=== PATIENT | female | born 1970 | race Caucasian/White ===

== ENCOUNTER 2019-04-22 11:32 | Inpatient (IN) | payer OTHER ==
--- NOTE | 2019-04-22 14:42 | HP ---
CIWA Score Nausea/Vomitin-No Nausea/No Vomiting Muscle Tremors: 1-None Visible, but [place] Anxiety: 4-Mod. Anxious/Guarded Agitation: 3 Paroxysmal Sweats: 1-Minimal Palms Moist Orientation: 0-Oriented Tacttile Disturbances: 2-Mild Itch/Numbness/Burn (itching sensation in arms and stomach) Auditory Disturbances: 0-None Visual Disturbances: 0-None Headache: 2-Mild (posterior POWELL(3/10 severity)) CIWA-Ar Total Score: 13 - Admission Criteria OASAS Guidelines: Admission for Medically Managed Detox: Requires at least one of the followin. CIWA greater than 12 2. Seizures within the past 24 hours 3. Delirium tremens within the past 24 hours 4. Hallucinations within the past 24 hours 5. Acute intervention needed for co occurring medical disorder 6. Acute intervention needed for co occurring psychiatric disorder 7. Severe withdrawal that cannot be handled at a lower level of care (continued vomiting, continued diarrhea, abnormal vital signs) requiring intravenous medication and/or fluids 8. Admission ROS [facility] Chief Complaint: detox from xanax Allergies/Adverse Reactions: Allergies Allergy/AdvReac Type Severity Reaction Status Date / Time meloxicam [From Mobic] Allergy Intermediate Verified 04/22/19 13:17 ibuprofen [From Motrin] Allergy Mild Rash Verified 04/22/19 13:16 History of Present Illness: 49F w/ HTN, asthma, migraines, herniated discs(c-spine, l-spine), carpal tunnel bl, RA of hands bl, asthma, PTSD, anxiety. Heroin(IV, nasal) 5bags daily, last usage yesterday. Uses clean needles, does not share. No ODs. No Narcan kit. Xanax 2-3pills(2mg) a few times a week for the past 3ys. Last xanax usage at ~ 0500. Formerly, had a rx d/t anxiety. Has had black-outs. Gets tremors after not using xanax for 3d. Has seizures x2(2014, 2015). On MMTP(90mg), last dose was this morning. Smokes 12cig daily. Was substance free for 1yr in 2017. Lives in [facility], [place], operated by [facility] with Terri. Financial support through [employer]. - Ebola screening Have you traveled outside of the country in the last 21 days: No Have you had contact with anyone from an Ebola affected area: No Do you have a fever: No - Review of Systems EENT: denies: Blurred Vision, Double Vision, Difficulty Swallowing Respiratory: denies: Cough, Productive cough Cardiac: denies: Chest Pain, Lightheadedness, Palpitations GI: reports: Constipated. denies: Abdominal Distended, Diarrhea, Poor Appetite , Vomiting, Indigestion : denies: Burning, Dysuria Musculoskeletal: reports: Back Pain Neuro: reports: Weakness (Left hand: difficulty lifting/grasping items). denies : Headache, Ataxia Hematology: denies: Blood Clots Patient History - Patient Medical History Hx Anemia: No Hx Asthma: Yes Hx Cancer: No Hx Cardiac Disorders: No Hx Hypertension: Yes HX Cerebrovascular Accident: No Hx Seizures: Yes (2014, 2015) Hx Diabetes: Yes (prediabetic) Hx Liver Disease: No Hx Renal Disease (ESRD): No Hx Human Immunodeficiency Virus (HIV): No Hx Hepatitis C: No - Patient Surgical History Past Surgical History: Yes Hx Cholecystectomy: Yes (tanya swann 1999) - Reproductive History Patient is a Female of Child Bearing Age (11 -55 yrs old): Yes Last Menstrual Period: 03/06/19 - Smoking Cessation Smoking history: Current every day smoker Have you smoked in the past 12 months: Yes Aproximately how many cigarettes per day: 12 Initiated information on smoking cessation: No - Substance & Tx. History Hx Alcohol Use: No Hx Substance Use: Yes Substance Use Type: Heroin, Tranquilizers - Substances abused Alprazolam (Xanax) Substance route: Oral Frequency: 3-6 times per week Amount used: 2-3 sticks Age of first use: 38 Date of last use: 04/21/19 Heroin Substance route: Smoking Frequency: Daily Amount used: 5 BAGS Age of first use: 7 Date of last use: 04/21/19 Admission Physical Exam BHS - Vital Signs Vital Signs: Vital Signs - 24 hr 04/22/19 04/22/19 13:20 13:51 Temperature 97 F L 97 F L Pulse Rate 70 70 Respiratory 18 Rate Blood Pressure 172/68 H - Physical General Appearance: Yes: Within Normal Limits, No Apparent Distress. No: Intoxicated HEENTM: Yes: Normocephalic. No: Pale Conjunctivae R, Pale Conjunctivae L, Scleral Ictenus R, Scleral Ictenus L Respiratory: Yes: Chest Non-Tender, No Accessory Muscle Use. No: Respiratory Distress, Wheezing Neck: Yes: No masses,lesions,Nodules, Trachea in good position Cardiology: Yes: S1, S2. No: Bradycardia, Tachycardia Abdominal: Yes: Soft. 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
--- NOTE | 2019-04-22 15:00 | PN ---
"Teaching Attending Note Name of Resident: Eleazar Wright ATTENDING PHYSICIAN STATEMENT I saw and evaluated the patient. I reviewed the resident's note and discussed the case with the resident. I agree with the resident's findings and plan as documented. SUBJECTIVE: 49 y.o,. female requesting detox from benzodiazepine use , reports 2 mg every other day x 3 years , reports tremors and anxiety if not using , current symptoms as above , latest use this morning , on MMTP 90 mg , ongoing heroin use 5 bags daily via inhalation , latest use yesterday , denies OD , no Narcan @ home . tobacco : 12 cigs/ day PMHX : HTN, asthma, migraines, herniated discs(c-spine, l-spine), carpal tunnel bl, RA of hands bl, asthma, PTSD, anxiety. OBJECTIVE: wnwd , anxious , agitated. Search Terms: fili cazares, 1970 Search Date: 04/22/2019 02:58:04 PM This report was requested by: Chayo Lr | Reference #: [id number] There are no results for the search terms that you entered. Vital Signs - 24 hr 04/22/19 04/22/19 13:20 13:51 Temperature 97 F L 97 F L Pulse Rate 70 70 Respiratory 18 Rate Blood Pressure 172/68 H ASSESSMENT AND PLAN: sedative use / abuse - Valium taper."
[2019-04-22 15:01] VITALS: BMI 31.4
[2019-04-22] MEDS ORDERED: ACETAMINOPHEN 325 MG TABLET (FP) PO PRN ×2 (15:10)
[2019-04-22] MEDS ORDERED: MAG HYDROX/AL HYDROX/SIMETH 30 ML UNIT-DOSE CUP PO PRN (15:10)
[2019-04-22] MEDS ORDERED: diazePAM 5 MG TABLET PO PRN (15:10)
[2019-04-22] MEDS ORDERED: NICOTINE POLACRILEX 2 MG GUM BUC PRN (15:10)
[2019-04-22] MEDS ORDERED: MENTHOL/PHENOL 1 EACH UD MM PRN (15:10)
[2019-04-22] MEDS ORDERED: MAGNESIUM CITRATE 300 ML BOTTLE PO PRN (15:10)
[2019-04-22] MEDS ORDERED: hydrOXYzine PAMOATE 25 MG CAPSULE (FP) PO PRN (15:10)
[2019-04-22] MEDS ORDERED: BISMUTH SUBSALICYLATE 524 MG/30 ML UD PO PRN (15:10)
[2019-04-22] MEDS ORDERED: METHOCARBAMOL 500 MG TABLET PO PRN (15:10)
[2019-04-22] MEDS: diazePAM 5 MG TABLET PO SCH ×2 (16:31→22:26)
[2019-04-22] MEDS: MOMETASONE FUROATE 220 MCG/IH INHALER IH SCH (18:25)
[2019-04-22] MEDS: THIAMINE HCL 100 MG TABLET (FP) PO SCH (22:26)
[2019-04-22] MEDS: GABAPENTIN 300 MG CAPSULE (FP) PO SCH (22:26)
[2019-04-22] MEDS: MELATONIN 5 MG TABLETS PO PRN (22:26)
[2019-04-23] MEDS ORDERED: METHADONE HCL 40 MG DISPERSABLE TABLET ONE (04:39)
[2019-04-23] MEDS ORDERED: METHADONE HCL 10 MG TABLET ONE (04:39)
[2019-04-23] MEDS: METHADONE 80 MG, METHADONE 10 MG PO SCH (05:33)
[2019-04-23] MEDS: diazePAM 5 MG TABLET PO SCH ×3 (05:33→22:39)
[2019-04-23] MEDS: GABAPENTIN 300 MG CAPSULE (FP) PO SCH ×3 (05:33→22:39)
[2019-04-23] MEDS ORDERED: METHADONE HCL 10 MG TABLET (FOR DETOX USE ONLY) PO SCH (10:00)
[2019-04-23] MEDS: PRENATAL VITAMINS W/ FOLIC ACID TABLET (FP) PO SCH (10:11)
[2019-04-23 11:15] LABS: HEMATOCRIT 38.2 % (32.4-45.2); HEMOGLOBIN 13.1 GM/dL (10.7-15.3); MCHC 34.2 g/dl (32.0-36.0); MEAN CELL VOLUME 96.4 fl (80-96); MEAN PLT VOLUME 8.1 fl (7.5-11.1); PLATELET COUNT 286 K/MM3 (134-434); RBC 3.96 M/mm3 (3.60-5.2); RDW 14.2 % (11.6-15.6); WHITE BLOOD COUNT 6.9 K/mm3 (4.0-10.0)
[2019-04-23 11:22] LABS: ALBUMIN 3.6 g/dl (3.4-5.0); BILIRUBIN,TOTAL 0.2 mg/dL (0.2-1); BLOOD UREA NITROGEN 11.8 mg/dL (7-18); CREATININE 0.7 mg/dL (0.55-1.3); POTASSIUM 4.1 mmol/L (3.5-5.1); TOT PROT 6.6 g/dl (6.4-8.2)
--- NOTE | 2019-04-23 12:16 | PN ---
S CIWA - CIWA Score Nausea/Vomitin-No Nausea/No Vomiting Muscle Tremors: 2 Anxiety: 3 Agitation: 1-Slight > Activity Paroxysmal Sweats: 3 Orientation: 0-Oriented Tacttile Disturbances: 0-None Auditory Disturbances: 0-None Visual Disturbances: 0-None Headache: 2-Mild CIWA-Ar Total Score: 11 S Progress Note (SOAP) Subjective: c/o anxiety, sweats, headache, and mild shakes. Objective: 04/23/19 12:16 Vital Signs 04/23/19 04/23/19 06:00 09:46 Temperature 97.9 F 98.8 F Pulse Rate 55 L 53 L Respiratory 18 18 Rate Blood Pressure 127/74 99/54 L Lab Results WBC 6.9 K/mm3 (4.0-10.0) 04/23/19 08:00 RBC 3.96 M/mm3 (3.60-5.2) 04/23/19 08:00 Hgb 13.1 GM/dL (10.7-15.3) 04/23/19 08:00 Hct 38.2 % (32.4-45.2) 04/23/19 08:00 MCV 96.4 fl (80-96) H 04/23/19 08:00 MCHC 34.2 g/dl (32.0-36.0) 04/23/19 08:00 RDW 14.2 % (11.6-15.6) 04/23/19 08:00 Plt Count 286 K/MM3 (134-434) D 04/23/19 08:00 Sodium 139 mmol/L (136-145) 04/23/19 08:00 Potassium 4.1 mmol/L (3.5-5.1) 04/23/19 08:00 Chloride 105 mmol/L (98-107) 04/23/19 08:00 Carbon Dioxide 29 mmol/L (21-32) 04/23/19 08:00 Anion Gap 5 MMOL/L (8-16) L 04/23/19 08:00 BUN 11.8 mg/dL (7-18) 04/23/19 08:00 Creatinine 0.7 mg/dL (0.55-1.3) 04/23/19 08:00 Random Glucose 84 mg/dL (74-106) 04/23/19 08:00 Calcium 9.0 mg/dL (8.5-10.1) 04/23/19 08:00 Labs noted. Assessment: 04/23/19 12:17 AOX3, in no acute distress. Full ROM, ambulating in the unit. Withdrawal symptoms. Plan: continue detox.
[2019-04-23] MEDS: MOMETASONE FUROATE 220 MCG/IH INHALER IH SCH (17:59)
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
[2019-04-23] MEDS: QUEtiapine FUMARATE 100 MG TABLET (FP) PO SCH (22:39)
[2019-04-23] MEDS: THIAMINE HCL 100 MG TABLET (FP) PO SCH (22:39)
[2019-04-24] MEDS ORDERED: METHADONE HCL 10 MG TABLET ONE (04:36)
[2019-04-24] MEDS ORDERED: METHADONE HCL 40 MG DISPERSABLE TABLET ONE (04:37)
[2019-04-24] MEDS: GABAPENTIN 300 MG CAPSULE (FP) PO SCH ×3 (05:21→22:07)
[2019-04-24] MEDS: METHADONE 80 MG, METHADONE 10 MG PO SCH (05:21)
[2019-04-24] MEDS: diazePAM 5 MG TABLET PO SCH ×2 (05:21→17:52)
[2019-04-24] MEDS: PRENATAL VITAMINS W/ FOLIC ACID TABLET (FP) PO SCH (10:40)
[2019-04-24] MEDS: MAGNESIUM HYDROX 2400MG/30ML ORAL SUSPENSION 30 ML CUP PO PRN (17:20)
[2019-04-24] MEDS ORDERED: cloNIDine HCL 0.1 MG TABLET PO PRN (17:43)
[2019-04-24] MEDS ORDERED: ONDANSETRON *ODT* 4 MG TABLET SL PRN (17:48)
--- NOTE | 2019-04-24 17:48 | PN ---
S CIWA - CIWA Score Nausea/Vomitin Muscle Tremors: 3 Anxiety: 3 Agitation: 2 Paroxysmal Sweats: 3 Orientation: 0-Oriented Tacttile Disturbances: 0-None Auditory Disturbances: 0-None Visual Disturbances: 0-None Headache: 0-None Present CIWA-Ar Total Score: 16 BHS Progress Note (SOAP) Subjective: Vomited x 2 this morning, stomachache, chills, sweating, tremor, nausea Objective: 04/24/19 17:43 Last Vital Signs Temp Pulse Resp BP Pulse Ox 98.6 F 67 18 158/74 04/24/19 17:12 04/24/19 17:12 04/24/19 17:12 04/24/19 17:12 Elevated b/p noted, Has htn (not on medication, started on clonidine prn) Laboratory Tests 04/23/19 04/23/19 04/23/19 08:00 08:00 08:00 WBC 6.9 RBC 3.96 Hgb 13.1 Hct 38.2 MCV 96.4 H MCH 33.0 MCHC 34.2 RDW 14.2 Plt Count 286 D MPV 8.1 Sodium 139 Potassium 4.1 Chloride 105 Carbon Dioxide 29 Anion Gap 5 L BUN 11.8 Creatinine 0.7 Est GFR (CKD-EPI)AfAm 116.27 Est GFR (CKD-EPI)NonAf 100.32 Random Glucose 84 Calcium 9.0 Total Bilirubin 0.2 AST 21 ALT 32 Alkaline Phosphatase 72 Total Protein 6.6 Albumin 3.6 RPR Titer Nonreactive Labs reviewed Assessment: 04/24/19 17:46 Withdrawal sxs Plan: Continue detox Encouraged PO water intake Diazepam protocol extended (5mg bid tomorrow then 5mg on Thursday due to increased withdrawal sxs) Tigan 200mg IM q12 hr prn vomiting Zofran 4mg SL q8hr prn n/v Repeat BMP in AM
[2019-04-24] MEDS ORDERED: TRIMETHOBENZAMIDE HCL 200MG/2ML INJ IM PRN (17:49)
[2019-04-24] MEDS: MOMETASONE FUROATE 220 MCG/IH INHALER IH SCH (17:56)
[2019-04-24] MEDS: QUEtiapine FUMARATE 100 MG TABLET (FP) PO SCH (22:07)
[2019-04-24] MEDS: THIAMINE HCL 100 MG TABLET (FP) PO SCH (22:07)
[2019-04-25] MEDS ORDERED: METHADONE HCL 40 MG DISPERSABLE TABLET ONE (05:11)
[2019-04-25] MEDS ORDERED: METHADONE HCL 10 MG TABLET ONE (05:11)
[2019-04-25] MEDS ORDERED: diazePAM 5 MG TABLET PO ONE ×2 (06:00→10:00)
[2019-04-25] MEDS: METHADONE 80 MG, METHADONE 10 MG PO SCH (06:51)
[2019-04-25] MEDS: GABAPENTIN 300 MG CAPSULE (FP) PO SCH ×3 (06:51→22:02)
[2019-04-25] MEDS: diazePAM 5 MG TABLET PO SCH ×2 (11:05→22:02)
[2019-04-25] MEDS: PRENATAL VITAMINS W/ FOLIC ACID TABLET (FP) PO SCH (11:05)
[2019-04-25] MEDS: MAGNESIUM HYDROX 2400MG/30ML ORAL SUSPENSION 30 ML CUP PO PRN (11:16)
--- NOTE | 2019-04-25 12:07 | PN ---
S CIWA - CIWA Score Nausea/Vomitin-No Nausea/No Vomiting Muscle Tremors: 1-None Visible, but [place] Anxiety: 2 Agitation: 1-Slight > Activity Paroxysmal Sweats: No Perspiration Orientation: 0-Oriented Tacttile Disturbances: 0-None Auditory Disturbances: 0-None Visual Disturbances: 0-None Headache: 0-None Present CIWA-Ar Total Score: 4 BHS Progress Note (SOAP) Subjective: constipation Objective: 04/25/19 12:06 Vital Signs Temperature 99.7 F H 04/25/19 11:05 Pulse Rate 75 04/25/19 11:05 Respiratory Rate 04/25/19 11:05 Blood Pressure 136/77 04/25/19 11:05 O2 Sat by Pulse Oximetry (%) aaox3 ambulating no acute distress Assessment: 04/25/19 12:06 mild withdrawals Plan: continue detox increase fluids MOM/Mylanta/citroma d/c in am
[2019-04-25] MEDS: MOMETASONE FUROATE 220 MCG/IH INHALER IH SCH (17:38)
[2019-04-25] MEDS: THIAMINE HCL 100 MG TABLET (FP) PO SCH (22:02)
[2019-04-25] MEDS: MELATONIN 5 MG TABLETS PO PRN (22:02)
[2019-04-25] MEDS: QUEtiapine FUMARATE 100 MG TABLET (FP) PO SCH (22:02)
[2019-04-26] MEDS ORDERED: METHADONE HCL 10 MG TABLET ONE (05:14)
[2019-04-26] MEDS ORDERED: METHADONE HCL 40 MG DISPERSABLE TABLET ONE (05:15)
[2019-04-26] MEDS ORDERED: diazePAM 5 MG TABLET PO ONE (06:00)
[2019-04-26] MEDS: METHADONE 80 MG, METHADONE 10 MG PO SCH (06:06)
[2019-04-26] MEDS: GABAPENTIN 300 MG CAPSULE (FP) PO SCH (06:07)
[2019-04-26 09:11] VITALS: BP 116/71; PULSE 76; TEMP 98.4
--- NOTE | 2019-04-26 09:27 | DS ---
[facility] Detox Discharge Summary Admission Date: 04/22/19 Discharge Date: 04/26/19 - History Present History: Sedative Dependence - Physical Exam Results Vital Signs: Vital Signs Temperature 98.4 F 04/26/19 09:11 Pulse Rate 76 04/26/19 09:11 Respiratory Rate 18 04/26/19 09:11 Blood Pressure 116/71 04/26/19 09:11 O2 Sat by Pulse Oximetry (%) Pertinent Admission Physical Exam Findings: pt arrived in withdrawals Laboratory Tests 04/22/19 04/23/19 04/23/19 13:54 08:00 08:00 WBC 6.9 RBC 3.96 Hgb 13.1 Hct 38.2 MCV 96.4 H MCH 33.0 MCHC 34.2 RDW 14.2 Plt Count 286 D MPV 8.1 Sodium 139 Potassium 4.1 Chloride 105 Carbon Dioxide 29 Anion Gap 5 L BUN 11.8 Creatinine 0.7 Est GFR (CKD-EPI)AfAm 116.27 Est GFR (CKD-EPI)NonAf 100.32 Random Glucose 84 Calcium 9.0 Total Bilirubin 0.2 AST 21 ALT 32 Alkaline Phosphatase 72 Total Protein 6.6 Albumin 3.6 POC Urine HCG, Qual Negative RPR Titer 04/23/19 08:00 WBC RBC Hgb Hct MCV MCH MCHC RDW Plt Count MPV Sodium Potassium Chloride Carbon Dioxide Anion Gap BUN Creatinine Est GFR (CKD-EPI)AfAm Est GFR (CKD-EPI)NonAf Random Glucose Calcium Total Bilirubin AST ALT Alkaline Phosphatase Total Protein Albumin POC Urine HCG, Qual RPR Titer Nonreactive today pt is aaox3 ambulating no acute distress - Treatment Hospital Course: Detox Protocol Followed, Detoxed Safely, Responded well, Discharged Condition Good, Rehab Referral Accepted Patient has Accepted a Rehab Referral to: pt referred to [facility] - Medication Discharge Medications: Ambulatory Orders Flovent Diskus 04/22/19 Gabapentin 04/22/19 - Diagnosis (1) Benzodiazepine dependence Current Visit: Yes Status: Chronic (2) Heroin dependence Current Visit: Yes Status: Chronic (3) History of posttraumatic stress disorder (PTSD) Current Visit: Yes Status: Chronic (4) Insomnia Current Visit: Yes Status: Chronic (5) Nicotine dependence Current Visit: Yes Status: Chronic Qualifiers: Nicotine product type: cigarettes Substance use status: uncomplicated Qualified Code(s): F17.210 - Nicotine dependence, cigarettes, uncomplicated (6) Substance induced mood disorder Current Visit: Yes Status: Chronic - AMA Did Patient Leave Against Medical Advice: No
== END 2019-04-26 09:25 | disposition home or self-care (01) | DRG 773 ==
LOC: YASAS 11:32 → Y6N 15:46
PROVIDERS: ADMIT Surgery; ATTEND Surgery
PROC: HZ2ZZZZ Detoxification Services for Substance Abuse Treatment (ICD-10-PCS; principal; 2019-04-22)
DX: F11.23 Opioid dependence with withdrawal (principal); F13.230 Sedative, hypnotic or anxiolytic dependence with withdrawal, uncomplicated; F17.210 Nicotine dependence, cigarettes, uncomplicated; F19.24 Other psychoactive substance dependence with psychoactive substance-induced mood disorder; G47.00 Insomnia, unspecified; J45.909 Unspecified asthma, uncomplicated; R73.03 Prediabetes; M06.842 Other specified rheumatoid arthritis, left hand; M06.841 Other specified rheumatoid arthritis, right hand; G89.29 Other chronic pain; Z86.59 Personal history of other mental and behavioral disorders; Z88.8 Allergy status to other drugs, medicaments and biological substances; Z86.69 Personal history of other diseases of the nervous system and sense organs
CPT/HCPCS: 36415; 80053; 81025; 85027; 86593

== ENCOUNTER 2019-05-20 14:30 | Inpatient (IN) | payer OTHER ==
[2019-05-20 16:33] VITALS: BMI 30.7
--- NOTE | 2019-05-20 18:00 | HP ---
"CIWA Score Nausea/Vomitin-No Nausea/No Vomiting Muscle Tremors: None Anxiety: 1-Mildly Anxious Agitation: 1-Slight > Activity Paroxysmal Sweats: No Perspiration Orientation: 0-Oriented Tacttile Disturbances: 0-None Auditory Disturbances: 0-None Visual Disturbances: 0-None Headache: 0-None Present CIWA-Ar Total Score: 2 - Admission Criteria OASAS Guidelines: Admission for Medically Managed Detox: Requires at least one of the followin. CIWA greater than 12 2. Seizures within the past 24 hours 3. Delirium tremens within the past 24 hours 4. Hallucinations within the past 24 hours 5. Acute intervention needed for co occurring medical disorder 6. Acute intervention needed for co occurring psychiatric disorder 7. Severe withdrawal that cannot be handled at a lower level of care (continued vomiting, continued diarrhea, abnormal vital signs) requiring intravenous medication and/or fluids 8. Patient presents the following: Acute intervention needed for co-occurring med or psych disorder (Currently w/ Xanax in system. Hx seizures in past r/t withdrawal. MARYAM: 0.040 Co-occurrring psych disorder) Admission Criteria Met: Admission criteria met Admitting History and Physical - Past Medical History ...LMP: 03/06/19 - Smoking History Smoking history: Current every day smoker Have you smoked in the past 12 months: Yes Aproximately how many cigarettes per day: 12 - Alcohol/Substance Use Hx Alcohol Use: No Admission ROS S - HPI Chief Complaint: here for detox from Xanax. Allergies/Adverse Reactions: Allergies Allergy/AdvReac Type Severity Reaction Status Date / Time meloxicam [From Mobic] Allergy Intermediate Verified 05/20/19 16:25 ibuprofen [From Motrin] Allergy Mild Rash Verified 05/20/19 16:25 History of Present Illness: 49 yo presents seeking detox from Xanax. Patient states took Xanax today and is not in withdrawal and is afraid to stop for fear of seizures. Hx depression and on MH meds. UTox: + MTD/BZO MARYAM: 0.040 HCG: Neg Hx: Seizures 2 years ago r/t medication withdrawals. Hx: Overdose 2 years ago. Xanax use since age 21. States currently using 3 - sticks/every other day. ( total 6 mg) Alcohol use since age 19. Currently drinks 1 shot liquor about 2 x/month Nicotine use since age 9. Smokes 10cig/day. Heroin use since age 7. Currently @ [facility] x 3 years. Currently on Methadone 100 mg PO daily. Last medicated today. [facility] has a Narcan Kit @ home. Longest sobriety 1yr in 2017. PMHx: HTN, Asthma (last exacerbation 1 yr ago), Migraines, RA, Chronic Back pain r/t Herniated discs(cervical/lumbar), Hand pain (states has carpal tunnel) , MHHx: PTSD, Anxiety. Depression. Sees a MH Provider @ [facility]. On MH meds. Denies thoughts of harming self or others SHx: Domiciled. Unemployed. ([employer]) Search Terms: Tracey Leon, 1970 Search Date: 05/20/2019 05:54:24 PM The Drug Utilization Report below displays all of the controlled substance prescriptions, if any, that your patient has filled in the last twelve months. The information displayed on this report is compiled from pharmacy submissions to the Department, and accurately reflects the information as submitted by the pharmacies. This report was requested by: Skylar Bryant | Reference #: [id number] There are no results for the search terms that you entered. Search Terms: Tracey Quintero, 1970 Search Date: 05/20/2019 05:57:05 PM States Searched: [place], [place], [place], [place], [place], [place], [place], [place] The Drug Utilization Report below displays the controlled substance prescriptions, if any, that were dispensed in the indicated state(s). The information displayed on this report is compiled from requests submitted to other states' PMPs, and accurately reflects the information as returned by them. Blank roman indicate data not provided by other state. This report was requested by: Skylar Bryant | Reference #: [id number] There are no results for the search terms that you entered. Exam Limitations: No Limitations - Ebola screening Have you traveled outside of the country in the last 21 days: No Have you had contact with anyone from an Ebola affected area: No Have you been sick,other than usual withdrawal symptoms: No Do you have a fever: No - Review of Systems Constitutional: Changes in sleep (Difficulty falling and staying asleep) EENT: reports: Blurred Vision Respiratory: reports: No Symptoms reported Cardiac: reports: No Symptoms Reported GI: reports: Indigestion (Acid reflux - takes TUMS) : reports: No Symptoms Reported Musculoskeletal: reports: Back Pain (Chronic Back pain r/t Herniated discs( cervical/lumbar),), Joint Pain ( Bilateral hand pain (states has carpal tunnel)) Integumentary: reports: No Symptoms Reported Neuro: reports: No Symptoms reported Endocrine: reports: No Symptoms Reported Hematology: reports: No Symptoms Reported Psychiatric: reports: Mood/Affect Appropiate, Orientated x3, Anxious, Depressed (Denies thoughts of harming self or others.) Patient History - Patient Medical History Hx Anemia: No Hx Asthma: Yes Hx Chronic Obstructive Pulmonary Disease (COPD): No Hx Cancer: No Hx Cardiac Disorders: No Hx Hypertension: No HX Cerebrovascular Accident: No Hx Seizures: Yes (last seizure was 3 yrs ago.) Hx Diabetes: No Hx Gastrointestinal Disorders: No Hx Liver Disease: No Hx Genitourinary Disorders: No Hx Sexually Transmitted Disorders: No Hx Renal Disease (ESRD): No Hx Human Immunodeficiency Virus (HIV): No Hx Hepatitis C: No Hx Depression: Yes Hx Suicide Attempt: Yes (Pt tried to cut herself as a teen) Hx Schizophrenia: No - Patient Surgical History Past Surgical History: Yes Hx Cholecystectomy: Yes (tanya swann 1999) Hx Section: Yes () Hx Orthopedic Surgery: Yes (sx for carpal tunnel R hand) - PPD History Previous Implant?: Yes Documented Results: Negative w/proof Implanted On Prior [facility] Admission?: Yes Date: 04/24/19 PPD to be Administered?: No - Reproductive History Patient is a Female of Child Bearing Age (11 -55 yrs old): Yes Last Menstrual Period: 05/03/19 Patient : No - Smoking Cessation Smoking history: Current every day smoker Have you smoked in the past 12 months: Yes Aproximately how many cigarettes per day: 10 Hx Chewing Tobacco Use: No Initiated information on smoking cessation: Yes 'Breaking Loose' booklet given: 05/20/19 - Substance & Tx. History Hx Alcohol Use: No Hx Substance Use: Yes Substance Use Type: Heroin, Opiates, Tranquilizers (Xanax) - Substances abused Alprazolam (Xanax) Substance route: Oral Frequency: 3-6 times per week Amount used: 2-3 sticks Age of first use: 38 Date of last use: 05/20/19 Heroin Substance route: Inhalation Frequency: Daily Amount used: 1 to 2 bags Age of first use: 7 Date of last use: 05/13/19 Alcohol Substance route: Oral Frequency: 1-3 times last 30 days Amount used: tiny shot' of liquor Age of first use: 19 Date of last use: 05/20/19 Admission Physical Exam S - Vital Signs Vital Signs: Vital Signs - 24 hr 05/20/19 16:24 Temperature 99.2 F Pulse Rate 90 Respiratory 16 Rate Blood Pressure 99/60 - Physical General Appearance: Yes: Nourished, Alcohol on Breath (MARYAM: 0.40) HEENTM: Yes: EOMI (Jerking movement of eyes upon lateral gaze), Hearing grossly Normal, Normocephalic, Normal Voice, DOLORES, Pharynx Normal Respiratory: Yes: Lungs Clear (Pulse Ox = 97 %), Normal Breath Sounds, No Respiratory Distress Neck: Yes: No masses,lesions,Nodules, Supple Breast: Yes: Breast Exam Deferred Cardiology: Yes: Regular Rhythm, Regular Rate (HR: 60), S1, S2 Abdominal: Yes: Non Tender, Soft, Increased Bowel Sounds, Protuberent ( Increased abdominal adiposity) Genitourinary: Yes: Within Normal Limits Back: Yes: Normal Inspection Musculoskeletal: Yes: full range of Motion, Gait Steady Extremities: Yes: Normal Capillary Refill (peripheral pulses +) Neurological: 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: 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 NML intact (Jerking movement of eyes upon lateral gaze), Fully Oriented, Alert, Motor Strength 5/5 Integumentary: Yes: Normal Color, Dry, Warm Lymphatic: Yes: Within Normal Limits - Diagnostic (1) Unspecified nystagmus Current Visit: Yes Status: Acute (2) Methadone maintenance therapy patient Current Visit: Yes Status: Chronic (3) Sedative, hypnotic, 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 Current Visit: Yes Status: Acute (4) History of seizures Current Visit: Yes Status: Suspected (5) Nicotine dependence Current Visit: Yes Status: Chronic Qualifiers: Nicotine product type: cigarettes Substance use status: uncomplicated Qualified Code(s): F17.210 - Nicotine dependence, cigarettes, uncomplicated (6) History of arthritis Current Visit: Yes Status: Chronic (7) History of asthma Current Visit: No Status: Chronic (8) HTN (hypertension) Current Visit: Yes Status: Chronic Qualifiers: Hypertension type: essential hypertension Qualified Code(s): I10 - Essential (primary) hypertension Cleared for Admission [facility] - Detox or Rehab [facility] Level of Care: Medically Managed Detox Regimen/Protocol: Valium Claeared for Rehab Admission: No Breathalyzer - Breathalyzer Breathalyzer: 0.040 Urine Drug Screen - Test Device Lot number: [id number] Expiration date: 12/31/20 - Control Is test valid?: Yes - Results Drug screen NEGATIVE: Yes Urine drug screen results: MTD-Methadone, BZO-Benzodiazepines Inpatient Rehab Admission - Rehab Decision to Admit Inpatient rehab admission?: No"
[2019-05-20] MEDS ORDERED: IBUPROFEN 400 MG TABLET (FP) PO PRN ×2 (19:08→19:18)
[2019-05-20] MEDS ORDERED: BISMUTH SUBSALICYLATE 524 MG/30 ML UD PO PRN (19:08)
[2019-05-20] MEDS ORDERED: ACETAMINOPHEN 325 MG TABLET (FP) PO PRN ×2 (19:08)
[2019-05-20] MEDS ORDERED: MAGNESIUM HYDROX 2400MG/30ML ORAL SUSPENSION 30 ML CUP PO PRN (19:08)
[2019-05-20] MEDS ORDERED: MENTHOL/PHENOL 1 EACH UD MM PRN (19:08)
[2019-05-20] MEDS ORDERED: MAGNESIUM CITRATE 300 ML BOTTLE PO PRN (19:08)
[2019-05-20] MEDS ORDERED: MAG HYDROX/AL HYDROX/SIMETH 30 ML UNIT-DOSE CUP PO PRN (19:08)
[2019-05-20] MEDS: diazePAM 5 MG TABLET PO PRN (20:40)
[2019-05-20] MEDS: THIAMINE HCL 100 MG TABLET (FP) PO SCH (22:21)
[2019-05-20] MEDS: MELATONIN 5 MG TABLETS PO PRN (22:22)
[2019-05-20] MEDS: diazePAM 5 MG TABLET PO SCH (22:22)
[2019-05-21] MEDS: diazePAM 5 MG TABLET PO SCH ×3 (05:24→22:47)
[2019-05-21] MEDS ORDERED: METHADONE HCL 10 MG TABLET PO SCH (09:15)
[2019-05-21] MEDS ORDERED: METHADONE HCL 10 MG TABLET ONE (09:32)
[2019-05-21] MEDS ORDERED: METHADONE HCL 40 MG DISPERSABLE TABLET ONE (09:33)
[2019-05-21] MEDS: METHADONE 80 MG, METHADONE 20 MG PO SCH (09:35)
[2019-05-21] MEDS: NICOTINE 14 MG/24 HOURS TOPICAL PATCH TD SCH (09:36)
[2019-05-21] MEDS: PRENATAL VITAMINS W/ FOLIC ACID TABLET (FP) PO SCH (09:36)
[2019-05-21] MEDS: diazePAM 5 MG TABLET PO PRN (09:38)
[2019-05-21 10:11] LABS: ALBUMIN 3.5 g/dl (3.4-5.0); BILIRUBIN,TOTAL 0.3 mg/dL (0.2-1); BLOOD UREA NITROGEN 15.4 mg/dL (7-18); CALCIUM 8.7 mg/dL (8.5-10.1); CREATININE 0.6 mg/dL (0.55-1.3); POTASSIUM 3.7 mmol/L (3.5-5.1); TOT PROT 6.4 g/dl (6.4-8.2)
[2019-05-21 10:42] LABS: HEMATOCRIT 35.8 % (32.4-45.2); HEMOGLOBIN 12.3 GM/dL (10.7-15.3); MCH 33.2 pg (25.7-33.7); MCHC 34.4 g/dl (32.0-36.0); MEAN CELL VOLUME 96.4 fl (80-96); MEAN PLT VOLUME 8.1 fl (7.5-11.1); PLATELET COUNT 240 K/MM3 (134-434); RBC 3.71 M/mm3 (3.60-5.2); RDW 14.3 % (11.6-15.6); WHITE BLOOD COUNT 6.2 K/mm3 (4.0-10.0)
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
--- NOTE | 2019-05-21 14:04 | PN ---
[facility] CIWA - CIWA Score Nausea/Vomitin-Mild Nausea/No Vomiting Muscle Tremors: 3 Anxiety: 2 Agitation: 2 Paroxysmal Sweats: 2 Orientation: 0-Oriented Tacttile Disturbances: 0-None Auditory Disturbances: 0-None Visual Disturbances: 0-None Headache: 2-Mild CIWA-Ar Total Score: 12 BHS Progress Note (SOAP) Subjective: No complaints O: Vital Signs - 24 hr 05/20/19 05/20/19 05/21/19 16:24 22:16 00:39 Temperature 99.2 F 98.9 F Pulse Rate 90 60 Respiratory 16 18 18 Rate Blood Pressure 99/60 116/70 05/21/19 05/21/19 05/21/19 03:30 06:26 09:49 Temperature 97.7 F 97.8 F Pulse Rate 49 L 58 L Respiratory 18 18 18 Rate Blood Pressure 108/63 98/60 05/21/19 13:34 Temperature 98.5 F Pulse Rate 62 Respiratory 18 Rate Blood Pressure 135/71 Laboratory Tests 05/21/19 05/21/19 05/21/19 08:00 08:00 08:00 WBC 6.2 RBC 3.71 Hgb 12.3 Hct 35.8 MCV 96.4 H MCH 33.2 MCHC 34.4 RDW 14.3 Plt Count 240 MPV 8.1 Sodium 139 Potassium 3.7 Chloride 103 Carbon Dioxide 28 Anion Gap 8 BUN 15.4 Creatinine 0.6 Est GFR (CKD-EPI)AfAm 122.32 Est GFR (CKD-EPI)NonAf 105.54 Random Glucose 83 Calcium 8.7 Total Bilirubin 0.3 AST 31 ALT 44 Alkaline Phosphatase 67 Total Protein 6.4 Albumin 3.5 RPR Titer Nonreactive a/p Here for benzo detox- continue valium
[2019-05-21] MEDS: GABAPENTIN 100 MG CAPSULE (FP) PO SCH ×2 (14:10→22:47)
[2019-05-21 18:43] LABS: EPI CELLS 19.9 /HPF (0-5/HPF); HYALINE CASTS 9 /lpf (0-8); PH,URINE 5.5 (5.0-8.0); URINE APPEARANCE CLOUDY; URINE BACTERIA 1351.5 /hpf (NEGATIVE); URINE BILIRUBIN NEGATIVE (NEGATIVE); URINE COLOR YELLOW; URINE GLUCOSE (UA) NEGATIVE (NEGATIVE); URINE KETONE NEGATIVE (NEGATIVE); URINE LEUK ESTERASE 2+ (NEGATIVE); URINE NITRITE NEGATIVE (NEGATIVE); URINE PROTEIN NEGATIVE (NEGATIVE); URINE RBC 6 /hpf (0-4); URINE UROBILINOGEN 0.2 mg/dL (0.2-1.0); URINE WBC 53 /hpf (0-5)
[2019-05-21] MEDS: THIAMINE HCL 100 MG TABLET (FP) PO SCH (22:46)
[2019-05-21] MEDS: QUEtiapine FUMARATE 50 MG TABLET PO SCH (22:46)
[2019-05-21] MEDS: PRAZOSIN HCL 1 MG CAPSULE PO SCH (22:47)
[2019-05-22] MEDS ORDERED: METHADONE HCL 40 MG DISPERSABLE TABLET ONE (04:54)
[2019-05-22] MEDS ORDERED: METHADONE HCL 10 MG TABLET ONE (04:54)
[2019-05-22] MEDS: GABAPENTIN 100 MG CAPSULE (FP) PO SCH ×3 (05:37→22:43)
[2019-05-22] MEDS: METHADONE 80 MG, METHADONE 20 MG PO SCH (05:37)
[2019-05-22] MEDS: diazePAM 5 MG TABLET PO SCH ×2 (05:37→18:04)
--- NOTE | 2019-05-22 10:05 | PN ---
[facility] CIWA - CIWA Score Nausea/Vomitin-No Nausea/No Vomiting Muscle Tremors: 2 Anxiety: 2 Agitation: 2 Paroxysmal Sweats: 1-Minimal Palms Moist Orientation: 0-Oriented Tacttile Disturbances: 1-Very Mild Itch/Numbness Auditory Disturbances: 0-None Visual Disturbances: 0-None Headache: 0-None Present CIWA-Ar Total Score: 8 S Progress Note (SOAP) Subjective: doing well with valium detox regimen less tremor mild anxiety sleep better at night patient prefers returning to methadone program for behavior therapy and psychosocial therapy Objective: 05/22/19 10:03 Vital Signs Temperature 97.9 F 05/22/19 09:55 Pulse Rate 65 05/22/19 09:55 Respiratory Rate 125 H 05/22/19 09:55 Blood Pressure 128/74 05/22/19 09:55 O2 Sat by Pulse Oximetry (%) Laboratory Last Values WBC 6.2 K/mm3 (4.0-10.0) 05/21/19 08:00 RBC 3.71 M/mm3 (3.60-5.2) 05/21/19 08:00 Hgb 12.3 GM/dL (10.7-15.3) 05/21/19 08:00 Hct 35.8 % (32.4-45.2) 05/21/19 08:00 MCV 96.4 fl (80-96) H 05/21/19 08:00 MCH 33.2 pg (25.7-33.7) 05/21/19 08:00 MCHC 34.4 g/dl (32.0-36.0) 05/21/19 08:00 RDW 14.3 % (11.6-15.6) 05/21/19 08:00 Plt Count 240 K/MM3 (134-434) 05/21/19 08:00 MPV 8.1 fl (7.5-11.1) 05/21/19 08:00 Sodium 139 mmol/L (136-145) 05/21/19 08:00 Potassium 3.7 mmol/L (3.5-5.1) 05/21/19 08:00 Chloride 103 mmol/L (98-107) 05/21/19 08:00 Carbon Dioxide 28 mmol/L (21-32) 05/21/19 08:00 Anion Gap 8 MMOL/L (8-16) 05/21/19 08:00 BUN 15.4 mg/dL (7-18) 05/21/19 08:00 Creatinine 0.6 mg/dL (0.55-1.3) 05/21/19 08:00 Est GFR (CKD-EPI)AfAm 122.32 05/21/19 08:00 Est GFR (CKD-EPI)NonAf 105.54 05/21/19 08:00 Random Glucose 83 mg/dL (74-106) 05/21/19 08:00 Calcium 8.7 mg/dL (8.5-10.1) 05/21/19 08:00 Total Bilirubin 0.3 mg/dL (0.2-1) 05/21/19 08:00 AST 31 U/L (15-37) 05/21/19 08:00 ALT 44 U/L (13-61) 05/21/19 08:00 Alkaline Phosphatase 67 U/L (45-117) 05/21/19 08:00 Total Protein 6.4 g/dl (6.4-8.2) 05/21/19 08:00 Albumin 3.5 g/dl (3.4-5.0) 05/21/19 08:00 Urine Color Yellow 05/21/19 16:30 Urine Appearance Cloudy 05/21/19 16:30 Urine pH 5.5 (5.0-8.0) 05/21/19 16:30 Ur Specific [place] 1.015 (1.010-1.035) 05/21/19 16:30 Urine Protein Negative (NEGATIVE) 05/21/19 16:30 Urine Glucose (UA) Negative (NEGATIVE) 05/21/19 16:30 Urine Ketones Negative (NEGATIVE) 05/21/19 16:30 Urine Blood Negative (NEGATIVE) 05/21/19 16:30 Urine Nitrite Negative (NEGATIVE) 05/21/19 16:30 Urine Bilirubin Negative (NEGATIVE) 05/21/19 16:30 Urine Urobilinogen 0.2 mg/dL (0.2-1.0) 05/21/19 16:30 Ur Leukocyte Esterase 2+ (NEGATIVE) H 05/21/19 16:30 Urine WBC (Auto) 53 /hpf (0-5) 05/21/19 16:30 Urine RBC (Auto) 6 /hpf (0-4) 05/21/19 16:30 Urine Casts (Auto) 9 /lpf (0-8) 05/21/19 16:30 U Epithel Cells (Auto) 19.9 /HPF (0-5/HPF) 05/21/19 16:30 Urine Bacteria (Auto) 1351.5 /hpf (NEGATIVE) 05/21/19 16:30 POC Urine HCG, Qual Negative 05/20/19 16:30 RPR Titer Nonreactive (NONREACTIVE) 05/21/19 08:00 lab noted patient has respiratory rate of 12 Assessment: 05/22/19 10:04 alcohol and benzo withdrawal sx Plan: continue valium detox regimen
[2019-05-22] MEDS: diazePAM 5 MG TABLET PO PRN (10:39)
[2019-05-22] MEDS: NICOTINE 14 MG/24 HOURS TOPICAL PATCH TD SCH (10:39)
[2019-05-22] MEDS: PRENATAL VITAMINS W/ FOLIC ACID TABLET (FP) PO SCH (10:39)
[2019-05-22] MEDS: METHOCARBAMOL 500 MG TABLET PO PRN (10:40)
[2019-05-22] MEDS: NICOTINE POLACRILEX 2 MG GUM BUC PRN (10:40)
[2019-05-22] MEDS: ALBUTEROL SO4 8 GM HFA INHALER IH PRN (15:12)
[2019-05-22] MEDS: QUEtiapine FUMARATE 50 MG TABLET PO SCH (22:44)
[2019-05-22] MEDS: THIAMINE HCL 100 MG TABLET (FP) PO SCH (22:44)
[2019-05-22] MEDS: PRAZOSIN HCL 1 MG CAPSULE PO SCH (22:44)
[2019-05-23] MEDS ORDERED: METHADONE HCL 10 MG TABLET ONE (05:17)
[2019-05-23] MEDS ORDERED: METHADONE HCL 40 MG DISPERSABLE TABLET ONE (05:17)
[2019-05-23] MEDS ORDERED: diazePAM 5 MG TABLET PO ONE (06:00)
[2019-05-23] MEDS: GABAPENTIN 100 MG CAPSULE (FP) PO SCH ×3 (06:04→22:21)
[2019-05-23] MEDS: METHADONE 80 MG, METHADONE 20 MG PO SCH (06:04)
[2019-05-23] MEDS: NICOTINE 14 MG/24 HOURS TOPICAL PATCH TD SCH (10:31)
[2019-05-23] MEDS: PRENATAL VITAMINS W/ FOLIC ACID TABLET (FP) PO SCH (10:31)
[2019-05-23] MEDS: NICOTINE POLACRILEX 2 MG GUM BUC PRN (10:32)
--- NOTE | 2019-05-23 10:40 | PN ---
S CIWA - CIWA Score Nausea/Vomitin-No Nausea/No Vomiting Muscle Tremors: 2 Anxiety: 2 Agitation: 2 Paroxysmal Sweats: No Perspiration Orientation: 0-Oriented Tacttile Disturbances: 0-None Auditory Disturbances: 0-None Visual Disturbances: 0-None Headache: 0-None Present CIWA-Ar Total Score: 6 B[facility] Progress Note (SOAP) Subjective: 49 years old female admitted on 05/20/19 for alcohol and benzo withdrawal sx management doing well with valium detox regimen tolerate methadone 100 mg po daily well patient is extremely anxious about the relapse that she prefers to learn more about coping patient is tearful and tremor patient determines to maintain sober due to physiological and psychological reaction toward aftercare add one last dose of valium on 05/24/19 Objective: 05/23/19 10:46 Vital Signs Temperature 97.5 F L 05/23/19 09:10 Pulse Rate 74 05/23/19 09:10 Respiratory Rate 16 05/23/19 09:10 Blood Pressure 124/82 05/23/19 09:10 O2 Sat by Pulse Oximetry (%) Laboratory Last Values WBC 6.2 K/mm3 (4.0-10.0) 05/21/19 08:00 RBC 3.71 M/mm3 (3.60-5.2) 05/21/19 08:00 Hgb 12.3 GM/dL (10.7-15.3) 05/21/19 08:00 Hct 35.8 % (32.4-45.2) 05/21/19 08:00 MCV 96.4 fl (80-96) H 05/21/19 08:00 MCH 33.2 pg (25.7-33.7) 05/21/19 08:00 MCHC 34.4 g/dl (32.0-36.0) 05/21/19 08:00 RDW 14.3 % (11.6-15.6) 05/21/19 08:00 Plt Count 240 K/MM3 (134-434) 05/21/19 08:00 MPV 8.1 fl (7.5-11.1) 05/21/19 08:00 Sodium 139 mmol/L (136-145) 05/21/19 08:00 Potassium 3.7 mmol/L (3.5-5.1) 05/21/19 08:00 Chloride 103 mmol/L (98-107) 05/21/19 08:00 Carbon Dioxide 28 mmol/L (21-32) 05/21/19 08:00 Anion Gap 8 MMOL/L (8-16) 05/21/19 08:00 BUN 15.4 mg/dL (7-18) 05/21/19 08:00 Creatinine 0.6 mg/dL (0.55-1.3) 05/21/19 08:00 Est GFR (CKD-EPI)AfAm 122.32 05/21/19 08:00 Est GFR (CKD-EPI)NonAf 105.54 05/21/19 08:00 Random Glucose 83 mg/dL (74-106) 05/21/19 08:00 Calcium 8.7 mg/dL (8.5-10.1) 05/21/19 08:00 Total Bilirubin 0.3 mg/dL (0.2-1) 05/21/19 08:00 AST 31 U/L (15-37) 05/21/19 08:00 ALT 44 U/L (13-61) 05/21/19 08:00 Alkaline Phosphatase 67 U/L (45-117) 05/21/19 08:00 Total Protein 6.4 g/dl (6.4-8.2) 05/21/19 08:00 Albumin 3.5 g/dl (3.4-5.0) 05/21/19 08:00 Urine Color Yellow 05/21/19 16:30 Urine Appearance Cloudy 05/21/19 16:30 Urine pH 5.5 (5.0-8.0) 05/21/19 16:30 Ur Specific [place] 1.015 (1.010-1.035) 05/21/19 16:30 Urine Protein Negative (NEGATIVE) 05/21/19 16:30 Urine Glucose (UA) Negative (NEGATIVE) 05/21/19 16:30 Urine Ketones Negative (NEGATIVE) 05/21/19 16:30 Urine Blood Negative (NEGATIVE) 05/21/19 16:30 Urine Nitrite Negative (NEGATIVE) 05/21/19 16:30 Urine Bilirubin Negative (NEGATIVE) 05/21/19 16:30 Urine Urobilinogen 0.2 mg/dL (0.2-1.0) 05/21/19 16:30 Ur Leukocyte Esterase 2+ (NEGATIVE) H 05/21/19 16:30 Urine WBC (Auto) 53 /hpf (0-5) 05/21/19 16:30 Urine RBC (Auto) 6 /hpf (0-4) 05/21/19 16:30 Urine Casts (Auto) 9 /lpf (0-8) 05/21/19 16:30 U Epithel Cells (Auto) 19.9 /HPF (0-5/HPF) 05/21/19 16:30 Urine Bacteria (Auto) 1351.5 /hpf (NEGATIVE) 05/21/19 16:30 POC Urine HCG, Qual Negative 05/20/19 16:30 RPR Titer Nonreactive (NONREACTIVE) 05/21/19 08:00 lab noted begin bactrim ds bid x 5 days for uti 05/23/19 10:50 Assessment: 05/23/19 10:50 alcohol and benzo withdrawal sx Plan: continue valium detox regimen
[2019-05-23] MEDS ORDERED: SULFAMETHOXAZOLE/TRIMETHOPRIM 800MG/160MG D.S. TABLET PO SCH (11:00)
[2019-05-23] MEDS: METHOCARBAMOL 500 MG TABLET PO PRN ×2 (12:41→19:33)
[2019-05-23] MEDS: SULFAMETHOXAZOLE/TRIMETHOPRIM 800MG/160MG D.S. TABLET PO SCH ×2 (12:41→22:21)
[2019-05-23] MEDS: diazePAM 5 MG TABLET PO PRN (12:41)
[2019-05-23] MEDS: THIAMINE HCL 100 MG TABLET (FP) PO SCH (22:19)
[2019-05-23] MEDS: QUEtiapine FUMARATE 50 MG TABLET PO SCH (22:21)
[2019-05-23] MEDS: PRAZOSIN HCL 1 MG CAPSULE PO SCH (22:21)
[2019-05-23] MEDS: MELATONIN 5 MG TABLETS PO PRN (22:22)
[2019-05-23] MEDS: ALBUTEROL SO4 8 GM HFA INHALER IH PRN (22:22)
[2019-05-24] MEDS ORDERED: METHADONE HCL 10 MG TABLET ONE (04:18)
[2019-05-24] MEDS ORDERED: METHADONE HCL 40 MG DISPERSABLE TABLET ONE (04:19)
[2019-05-24] MEDS ORDERED: diazePAM 5 MG TABLET PO ONE (05:00)
[2019-05-24] MEDS: METHADONE 80 MG, METHADONE 20 MG PO SCH (06:38)
[2019-05-24] MEDS: GABAPENTIN 100 MG CAPSULE (FP) PO SCH (06:38)
[2019-05-24 09:14] VITALS: BP 122/79; PULSE 75; TEMP 98.8
[2019-05-24] MEDS: PRENATAL VITAMINS W/ FOLIC ACID TABLET (FP) PO SCH (09:48)
[2019-05-24] MEDS: SULFAMETHOXAZOLE/TRIMETHOPRIM 800MG/160MG D.S. TABLET PO SCH (09:48)
[2019-05-24] MEDS: NICOTINE POLACRILEX 2 MG GUM BUC PRN (09:48)
[2019-05-24] MEDS: NICOTINE 14 MG/24 HOURS TOPICAL PATCH TD SCH (09:48)
[2019-05-24] MEDS: ALBUTEROL SO4 8 GM HFA INHALER IH PRN (10:30)
--- NOTE | 2019-05-24 11:11 | DS ---
[facility] Detox Discharge Summary Admission Date: 05/20/19 Discharge Date: 05/24/19 - History Present History: Alcohol Dependence, Sedative Dependence Additional Comments: 49 years old female admitted on 05/20/19 did well with valium detox regimen no complication through out the detox stay alert oriented x 3 cardiac S1S2 regular rate rhythm respiratory clear lung bilaterally on auscultatin abdomen soft obese around no rebound tenderness - Physical Exam Results Vital Signs: Vital Signs Temperature 98.8 F 05/24/19 09:14 Pulse Rate 75 05/24/19 09:14 Respiratory Rate 18 05/24/19 09:14 Blood Pressure 122/79 05/24/19 09:14 O2 Sat by Pulse Oximetry (%) Pertinent Admission Physical Exam Findings: alcohol and benzo withdrawal sx Laboratory Last Values WBC 6.2 K/mm3 (4.0-10.0) 05/21/19 08:00 RBC 3.71 M/mm3 (3.60-5.2) 05/21/19 08:00 Hgb 12.3 GM/dL (10.7-15.3) 05/21/19 08:00 Hct 35.8 % (32.4-45.2) 05/21/19 08:00 MCV 96.4 fl (80-96) H 05/21/19 08:00 MCH 33.2 pg (25.7-33.7) 05/21/19 08:00 MCHC 34.4 g/dl (32.0-36.0) 05/21/19 08:00 RDW 14.3 % (11.6-15.6) 05/21/19 08:00 Plt Count 240 K/MM3 (134-434) 05/21/19 08:00 MPV 8.1 fl (7.5-11.1) 05/21/19 08:00 Sodium 139 mmol/L (136-145) 05/21/19 08:00 Potassium 3.7 mmol/L (3.5-5.1) 05/21/19 08:00 Chloride 103 mmol/L (98-107) 05/21/19 08:00 Carbon Dioxide 28 mmol/L (21-32) 05/21/19 08:00 Anion Gap 8 MMOL/L (8-16) 05/21/19 08:00 BUN 15.4 mg/dL (7-18) 05/21/19 08:00 Creatinine 0.6 mg/dL (0.55-1.3) 05/21/19 08:00 Est GFR (CKD-EPI)AfAm 122.32 05/21/19 08:00 Est GFR (CKD-EPI)NonAf 105.54 05/21/19 08:00 Random Glucose 83 mg/dL (74-106) 05/21/19 08:00 Calcium 8.7 mg/dL (8.5-10.1) 05/21/19 08:00 Total Bilirubin 0.3 mg/dL (0.2-1) 05/21/19 08:00 AST 31 U/L (15-37) 05/21/19 08:00 ALT 44 U/L (13-61) 05/21/19 08:00 Alkaline Phosphatase 67 U/L (45-117) 05/21/19 08:00 Total Protein 6.4 g/dl (6.4-8.2) 05/21/19 08:00 Albumin 3.5 g/dl (3.4-5.0) 05/21/19 08:00 Urine Color Yellow 05/21/19 16:30 Urine Appearance Cloudy 05/21/19 16:30 Urine pH 5.5 (5.0-8.0) 05/21/19 16:30 Ur Specific [place] 1.015 (1.010-1.035) 05/21/19 16:30 Urine Protein Negative (NEGATIVE) 05/21/19 16:30 Urine Glucose (UA) Negative (NEGATIVE) 05/21/19 16:30 Urine Ketones Negative (NEGATIVE) 05/21/19 16:30 Urine Blood Negative (NEGATIVE) 05/21/19 16:30 Urine Nitrite Negative (NEGATIVE) 05/21/19 16:30 Urine Bilirubin Negative (NEGATIVE) 05/21/19 16:30 Urine Urobilinogen 0.2 mg/dL (0.2-1.0) 05/21/19 16:30 Ur Leukocyte Esterase 2+ (NEGATIVE) H 05/21/19 16:30 Urine WBC (Auto) 53 /hpf (0-5) 05/21/19 16:30 Urine RBC (Auto) 6 /hpf (0-4) 05/21/19 16:30 Urine Casts (Auto) 9 /lpf (0-8) 05/21/19 16:30 U Epithel Cells (Auto) 19.9 /HPF (0-5/HPF) 05/21/19 16:30 Urine Bacteria (Auto) 1351.5 /hpf (NEGATIVE) 05/21/19 16:30 POC Urine HCG, Qual Negative 05/20/19 16:30 RPR Titer Nonreactive (NONREACTIVE) 05/21/19 08:00 lab noted - Treatment Hospital Course: Detox Protocol Followed, Detoxed Safely, Responded well, Discharged Condition Good, Rehab Referral Accepted Patient has Accepted [facility] - Medication Discharge Medications: Ambulatory Orders Flovent Diskus 2 puff PO BID 04/22/19 Gabapentin 04/22/19 Prazosin HCl 1 mg PO HS #7 capsule 05/13/19 Sertraline HCl [Zoloft] 25 mg PO DAILY #7 tablet 05/13/19 Albuterol Sulfate Inhaler - [Ventolin HFA Inhaler -] 2 inhaler PO Q4HWA PRN - Diagnosis (1) Alcohol dependence, uncomplicated Current Visit: Yes Status: Acute (2) Sedative, hypnotic, 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 Current Visit: Yes Status: Acute (3) HTN (hypertension) Current Visit: Yes Status: Chronic Qualifiers: Hypertension type: essential hypertension Qualified Code(s): I10 - Essential (primary) hypertension (4) Methadone maintenance therapy patient Current Visit: Yes Status: Chronic (5) Nicotine dependence Current Visit: Yes Status: Acute Qualifiers: Nicotine product type: cigarettes Substance use status: in withdrawal Qualified Code(s): F17.213 - Nicotine dependence, cigarettes, with withdrawal (6) Substance induced mood disorder Current Visit: Yes Status: Suspected - AMA Did Patient Leave Against Medical Advice: No CIWA Score - CIWA Score Nausea/Vomitin-No Nausea/No Vomiting Muscle Tremors: 1-None Visible, but [place] Anxiety: 1-Mildly Anxious Agitation: 1-Slight > Activity Paroxysmal Sweats: No Perspiration Orientation: 0-Oriented Tacttile Disturbances: 0-None Auditory Disturbances: 0-None Visual Disturbances: 0-None Headache: 0-None Present CIWA-Ar Total Score: 3
[2019-05-24] MEDS: METHOCARBAMOL 500 MG TABLET PO PRN (12:45)
--- NOTE | 2019-05-24 13:35 | EKG ---
Test Reason : Blood Pressure : / mmHG Vent. Rate : 059 BPM Atrial Rate : 059 BPM P-R Int : 146 ms QRS Dur : 086 ms QT Int : 444 ms P-R-T Axes : 034 032 037 degrees QTc Int : 439 ms SINUS BRADYCARDIA OTHERWISE NORMAL ECG WHEN COMPARED WITH ECG OF 01-FEB-2019 08:11, NO SIGNIFICANT CHANGE WAS FOUND Confirmed by MD Berumen Edward ([id number]) on 05/24/2019 1:34:37 PM Referred By: Confirmed By:Morgan Berumen MD
== END 2019-05-24 12:46 | disposition other institution (70) | DRG 773 ==
LOC: YASAS 14:30 → Y3N 19:34
PROVIDERS: ADMIT Allergy & Immunology; ATTEND Allergy & Immunology
PROC: HZ2ZZZZ Detoxification Services for Substance Abuse Treatment (ICD-10-PCS; principal; 2019-05-20)
DX: F10.230 Alcohol dependence with withdrawal, uncomplicated (principal); F11.20 Opioid dependence, uncomplicated; F13.230 Sedative, hypnotic or anxiolytic dependence with withdrawal, uncomplicated; F17.210 Nicotine dependence, cigarettes, uncomplicated; F19.24 Other psychoactive substance dependence with psychoactive substance-induced mood disorder; I10 Essential (primary) hypertension; H55.00 Unspecified nystagmus; G47.00 Insomnia, unspecified; J45.909 Unspecified asthma, uncomplicated; M06.9 Rheumatoid arthritis, unspecified; R73.03 Prediabetes; G56.03 Carpal tunnel syndrome, bilateral upper limbs; M50.20 Other cervical disc displacement, unspecified cervical region; M51.26 Other intervertebral disc displacement, lumbar region; Z88.6 Allergy status to analgesic agent; Z86.69 Personal history of other diseases of the nervous system and sense organs; Z91.5 Personal history of self-harm
CPT/HCPCS: 36415; 80053; 81003; 81025; 85027; 86593; 93005; 93010

== ENCOUNTER 2019-05-24 13:01 | Inpatient (IN) | payer OTHER ==
--- NOTE | 2019-05-24 11:18 | HP ---
[facility] Rehab Assess/Revision - Admission History Admitted to Rehab from: [facility] Date of Admission to Rehab: 05/24/19 - Findings Detox History & Physical reviewed: Yes Concur with findings: Yes Comments/Additional Findings: transferred from detox to rehab admission as per protocol Inpatient Rehab Admission - Rehab Decision to Admit Inpatient rehab admission?: Yes - Initial Determination Are CD services needed?: Yes Free of communicable disease: Yes Not in need of hospitalization: Yes - Rehab Admission Criteria Previous failed treatment: Yes Poor recovery environment: Yes Comorbidities: Yes Lacks judgement: Yes Patient is meeting Inpatient Rehab admission criteria:: Yes
[~2019-05-24 13:01] MED LIST: ACETAMINOPHEN 325 MG TABLET (FP) PO PRN; IBUPROFEN 400 MG TABLET (FP) PO PRN; LOPERAMIDE HCL 2 MG CAPSULE PO PRN; P-EPHED 60MG/TRIPROLIDI 2.5MG TABLET PO PRN
[2019-05-24] MEDS: GABAPENTIN 100 MG CAPSULE PO SCH ×2 (15:00→21:23)
[2019-05-24] MEDS: THIAMINE HCL 100 MG TABLET (FP) PO SCH (21:21)
[2019-05-24] MEDS: PRAZOSIN HCL 1 MG CAPSULE PO SCH (21:23)
[2019-05-24] MEDS: SULFAMETHOXAZOLE/TRIMETHOPRIM 800MG/160MG D.S. TABLET PO SCH (21:23)
[2019-05-24] MEDS ORDERED: MELATONIN 5 MG TABLETS PO PRN (22:00)
[2019-05-24] MEDS ORDERED: QUEtiapine FUMARATE 50 MG TABLET PO ONE (22:00)
[2019-05-25] MEDS ORDERED: METHADONE 80 MG, METHADONE 20 MG PO SCH (06:00)
[2019-05-25] MEDS: GABAPENTIN 100 MG CAPSULE PO SCH ×3 (06:45→21:20)
[2019-05-25] MEDS ORDERED: METHADONE HCL 10 MG TABLET PO SCH (07:30)
[2019-05-25] MEDS ORDERED: METHADONE HCL 10 MG TABLET ONE (08:05)
[2019-05-25] MEDS ORDERED: METHADONE HCL 40 MG DISPERSABLE TABLET ONE (08:05)
[2019-05-25] MEDS: NICOTINE POLACRILEX 2 MG GUM BC PRN ×2 (08:57→18:20)
[2019-05-25] MEDS: PRENATAL VITAMINS W/ FOLIC ACID TABLET (FP) PO SCH (10:20)
[2019-05-25] MEDS: SULFAMETHOXAZOLE/TRIMETHOPRIM 800MG/160MG D.S. TABLET PO SCH ×2 (10:20→21:21)
[2019-05-25] MEDS: NICOTINE 14 MG/24 HOURS TOPICAL PATCH TD SCH (10:21)
--- NOTE | 2019-05-25 10:28 | PREP.REFER ---
HIV PrEP/PEP - PrEP HIV Risk Assessment When was your last HIV test?: 05/25/2019 HIV Test offered: Accepted Are you concerned about any sexual encounters past 6 months?: No Have you had a STI in the last 6 months?: No Have you shared needles or other equipment?: No Are you interested in daily medication to help prevent HIV?: No Recommendation: None at this time Comment: Patient states that she has one partner who has been tested for HIV and is negative. She does not share needles and gets clean needles from her [facility].
[2019-05-25] MEDS: CYCLOBENZAPRINE HCL 5 MG TABLET PO SCH ×3 (10:46→21:20)
[2019-05-25] MEDS ORDERED: FLU VACCINE QUAD 60 MCG/0.5 ML (MDV 19-20) IM ONE (12:00)
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
[2019-05-25] MEDS ORDERED: METHADONE HCL 40 MG DISPERSABLE TABLET PO SCH (13:53)
--- NOTE | 2019-05-25 14:41 | PN ---
[facility] Progress Note Note: Patient requested increase in methadone. Discussed with Methadone provider. Will increase to 110mg daily.
[2019-05-25] MEDS: THIAMINE HCL 100 MG TABLET (FP) PO SCH (21:20)
[2019-05-25] MEDS: PRAZOSIN HCL 1 MG CAPSULE PO SCH (21:20)
[2019-05-25] MEDS: QUEtiapine FUMARATE 50 MG TABLET PO SCH (21:21)
[2019-05-25] MEDS: MELATONIN 5 MG TABLETS PO PRN (21:23)
[2019-05-25] MEDS ORDERED: PT OWN MED DRAWER 7, Y5N ONE (21:25)
[2019-05-25] MEDS: ALBUTEROL SO4 HFA INHALER IH PRN (21:26)
[2019-05-26] MEDS ORDERED: METHADONE HCL 10 MG TABLET ONE (06:09)
[2019-05-26] MEDS ORDERED: METHADONE HCL 40 MG DISPERSABLE TABLET ONE (06:09)
[2019-05-26] MEDS: METHADONE 80 MG, METHADONE 30 MG PO SCH (06:33)
[2019-05-26] MEDS: CYCLOBENZAPRINE HCL 5 MG TABLET PO SCH ×3 (06:34→21:15)
[2019-05-26] MEDS: GABAPENTIN 100 MG CAPSULE PO SCH ×3 (06:34→21:15)
[2019-05-26] MEDS: PRENATAL VITAMINS W/ FOLIC ACID TABLET (FP) PO SCH (10:06)
[2019-05-26] MEDS: NICOTINE 14 MG/24 HOURS TOPICAL PATCH TD SCH (10:06)
[2019-05-26] MEDS: SULFAMETHOXAZOLE/TRIMETHOPRIM 800MG/160MG D.S. TABLET PO SCH ×2 (10:07→21:15)
[2019-05-26] MEDS: NICOTINE POLACRILEX 2 MG GUM BC PRN ×2 (10:08→19:04)
[2019-05-26] MEDS ORDERED: METHADONE HCL 40 MG DISPERSABLE TABLET PO SCH (13:53)
[2019-05-26] MEDS: ALBUTEROL SO4 HFA INHALER IH PRN (15:41)
[2019-05-26] MEDS: MAGNESIUM HYDROX 2400MG/30ML ORAL SUSPENSION 30 ML CUP PO PRN (17:39)
[2019-05-26] MEDS: PRAZOSIN HCL 1 MG CAPSULE PO SCH (21:15)
[2019-05-26] MEDS: THIAMINE HCL 100 MG TABLET (FP) PO SCH (21:15)
[2019-05-26] MEDS: MELATONIN 5 MG TABLETS PO PRN (21:16)
[2019-05-26] MEDS: QUEtiapine FUMARATE 50 MG TABLET PO SCH (21:17)
[2019-05-27] MEDS ORDERED: METHADONE HCL 40 MG DISPERSABLE TABLET ONE (03:30)
[2019-05-27] MEDS ORDERED: METHADONE HCL 10 MG TABLET ONE (03:30)
[2019-05-27] MEDS: METHADONE 80 MG, METHADONE 30 MG PO SCH (06:27)
[2019-05-27] MEDS: GABAPENTIN 100 MG CAPSULE PO SCH ×3 (06:28→22:04)
[2019-05-27] MEDS: CYCLOBENZAPRINE HCL 5 MG TABLET PO SCH ×3 (06:28→22:04)
[2019-05-27] MEDS: SULFAMETHOXAZOLE/TRIMETHOPRIM 800MG/160MG D.S. TABLET PO SCH ×2 (09:53→22:04)
[2019-05-27] MEDS: NICOTINE 14 MG/24 HOURS TOPICAL PATCH TD SCH (09:53)
[2019-05-27] MEDS: PRENATAL VITAMINS W/ FOLIC ACID TABLET (FP) PO SCH (09:54)
[2019-05-27] MEDS: NICOTINE POLACRILEX 2 MG GUM BC PRN ×2 (09:54→13:04)
[2019-05-27] MEDS: ACETAMINOPHEN 325 MG TABLET (FP) PO PRN (09:56)
[2019-05-27] MEDS: ALBUTEROL SO4 HFA INHALER IH PRN (09:57)
[2019-05-27] MEDS: MAGNESIUM CITRATE 300 ML BOTTLE PO PRN (09:57)
[2019-05-27] MEDS: PRAZOSIN HCL 1 MG CAPSULE PO SCH (22:04)
[2019-05-27] MEDS: QUEtiapine FUMARATE 50 MG TABLET PO SCH (22:04)
[2019-05-27] MEDS: MELATONIN 5 MG TABLETS PO PRN (22:05)
[2019-05-27] MEDS: THIAMINE HCL 100 MG TABLET (FP) PO SCH (22:05)
[2019-05-28] MEDS ORDERED: METHADONE HCL 10 MG TABLET ONE (05:59)
[2019-05-28] MEDS ORDERED: METHADONE HCL 40 MG DISPERSABLE TABLET ONE (06:00)
[2019-05-28] MEDS: CYCLOBENZAPRINE HCL 5 MG TABLET PO SCH ×3 (06:34→22:06)
[2019-05-28] MEDS: METHADONE 80 MG, METHADONE 30 MG PO SCH (06:34)
[2019-05-28] MEDS: GABAPENTIN 100 MG CAPSULE PO SCH ×3 (06:34→22:06)
[2019-05-28] MEDS: NICOTINE 14 MG/24 HOURS TOPICAL PATCH TD SCH (09:56)
[2019-05-28] MEDS: SULFAMETHOXAZOLE/TRIMETHOPRIM 800MG/160MG D.S. TABLET PO SCH (09:56)
[2019-05-28] MEDS: PRENATAL VITAMINS W/ FOLIC ACID TABLET (FP) PO SCH (09:56)
[2019-05-28] MEDS: ACETAMINOPHEN 325 MG TABLET (FP) PO PRN (09:58)
[2019-05-28] MEDS: NICOTINE POLACRILEX 2 MG GUM BC PRN (13:53)
[2019-05-28] MEDS: MAGNESIUM HYDROX 2400MG/30ML ORAL SUSPENSION 30 ML CUP PO PRN (13:54)
[2019-05-28] MEDS: MELATONIN 5 MG TABLETS PO PRN (22:06)
[2019-05-28] MEDS: PRAZOSIN HCL 1 MG CAPSULE PO SCH (22:06)
[2019-05-28] MEDS: THIAMINE HCL 100 MG TABLET (FP) PO SCH (22:06)
[2019-05-28] MEDS: QUEtiapine FUMARATE 50 MG TABLET PO SCH (22:06)
[2019-05-29] MEDS ORDERED: METHADONE HCL 40 MG DISPERSABLE TABLET ONE (05:54)
[2019-05-29] MEDS ORDERED: METHADONE HCL 10 MG TABLET ONE (05:54)
[2019-05-29] MEDS: METHADONE 80 MG, METHADONE 30 MG PO SCH (06:08)
[2019-05-29] MEDS: GABAPENTIN 100 MG CAPSULE PO SCH ×3 (06:08→21:47)
[2019-05-29] MEDS: CYCLOBENZAPRINE HCL 5 MG TABLET PO SCH ×3 (06:08→21:48)
[2019-05-29] MEDS: NICOTINE POLACRILEX 2 MG GUM BC PRN ×2 (09:58→14:04)
[2019-05-29] MEDS: PRENATAL VITAMINS W/ FOLIC ACID TABLET (FP) PO SCH (09:58)
[2019-05-29] MEDS: NICOTINE 14 MG/24 HOURS TOPICAL PATCH TD SCH (09:58)
[2019-05-29] MEDS: ACETAMINOPHEN 325 MG TABLET (FP) PO PRN ×2 (10:00→20:00)
[2019-05-29] MEDS: MAG HYDROX/AL HYDROX/SIMETH 30 ML UNIT-DOSE CUP PO PRN (10:42)
[2019-05-29] MEDS: THIAMINE HCL 100 MG TABLET (FP) PO SCH (21:47)
[2019-05-29] MEDS: QUEtiapine FUMARATE 50 MG TABLET PO SCH (21:47)
[2019-05-29] MEDS: MELATONIN 5 MG TABLETS PO PRN (21:47)
[2019-05-29] MEDS: PRAZOSIN HCL 1 MG CAPSULE PO SCH (21:47)
[2019-05-30] MEDS ORDERED: METHADONE HCL 10 MG TABLET ONE (05:49)
[2019-05-30] MEDS ORDERED: METHADONE HCL 40 MG DISPERSABLE TABLET ONE (05:49)
[2019-05-30] MEDS: METHADONE 80 MG, METHADONE 30 MG PO SCH (06:02)
[2019-05-30] MEDS: GABAPENTIN 100 MG CAPSULE PO SCH ×3 (06:03→21:40)
[2019-05-30] MEDS: CYCLOBENZAPRINE HCL 5 MG TABLET PO SCH ×3 (06:03→21:40)
[2019-05-30] MEDS: PRENATAL VITAMINS W/ FOLIC ACID TABLET (FP) PO SCH (10:06)
[2019-05-30] MEDS: NICOTINE 14 MG/24 HOURS TOPICAL PATCH TD SCH (10:06)
[2019-05-30] MEDS: NICOTINE POLACRILEX 2 MG GUM BC PRN (10:07)
[2019-05-30] MEDS: ACETAMINOPHEN 325 MG TABLET (FP) PO PRN (13:56)
[2019-05-30] MEDS: ALBUTEROL SO4 HFA INHALER IH PRN (14:08)
[2019-05-30] MEDS: THIAMINE HCL 100 MG TABLET (FP) PO SCH (21:40)
[2019-05-30] MEDS: QUEtiapine FUMARATE 50 MG TABLET PO SCH (21:40)
[2019-05-30] MEDS: PRAZOSIN HCL 1 MG CAPSULE PO SCH (21:40)
[2019-05-30] MEDS: MELATONIN 5 MG TABLETS PO PRN (21:41)
[2019-05-30] MEDS: MAG HYDROX/AL HYDROX/SIMETH 30 ML UNIT-DOSE CUP PO PRN (21:43)
[2019-05-31] MEDS ORDERED: METHADONE HCL 40 MG DISPERSABLE TABLET ONE (03:30)
[2019-05-31] MEDS ORDERED: METHADONE HCL 10 MG TABLET ONE (03:30)
[2019-05-31] MEDS: GABAPENTIN 100 MG CAPSULE PO SCH ×3 (06:16→21:47)
[2019-05-31] MEDS: METHADONE 80 MG, METHADONE 30 MG PO SCH (06:16)
[2019-05-31] MEDS: CYCLOBENZAPRINE HCL 5 MG TABLET PO SCH ×3 (06:16→21:47)
[2019-05-31] MEDS: NICOTINE 14 MG/24 HOURS TOPICAL PATCH TD SCH (10:24)
[2019-05-31] MEDS: PRENATAL VITAMINS W/ FOLIC ACID TABLET (FP) PO SCH (10:25)
[2019-05-31] MEDS: ACETAMINOPHEN 325 MG TABLET (FP) PO PRN (10:25)
[2019-05-31] MEDS: NICOTINE POLACRILEX 2 MG GUM BC PRN ×2 (10:26→22:26)
[2019-05-31] MEDS: MELATONIN 5 MG TABLETS PO PRN (21:45)
[2019-05-31] MEDS: PRAZOSIN HCL 1 MG CAPSULE PO SCH (21:47)
[2019-05-31] MEDS: QUEtiapine FUMARATE 50 MG TABLET PO SCH (21:47)
[2019-05-31] MEDS: THIAMINE HCL 100 MG TABLET (FP) PO SCH (21:48)
[2019-06-01] MEDS: METHADONE 80 MG, METHADONE 30 MG PO SCH (06:04)
[2019-06-01] MEDS ORDERED: METHADONE HCL 10 MG TABLET ONE (06:04)
[2019-06-01] MEDS ORDERED: METHADONE HCL 40 MG DISPERSABLE TABLET ONE (06:04)
[2019-06-01] MEDS: CYCLOBENZAPRINE HCL 5 MG TABLET PO SCH ×3 (06:06→22:13)
[2019-06-01] MEDS: GABAPENTIN 100 MG CAPSULE PO SCH ×3 (06:06→22:12)
[2019-06-01] MEDS: PRENATAL VITAMINS W/ FOLIC ACID TABLET (FP) PO SCH (09:59)
[2019-06-01] MEDS: NICOTINE 14 MG/24 HOURS TOPICAL PATCH TD SCH (09:59)
[2019-06-01] MEDS: ACETAMINOPHEN 325 MG TABLET (FP) PO PRN (10:00)
[2019-06-01] MEDS: NICOTINE POLACRILEX 2 MG GUM BC PRN ×2 (10:01→18:46)
[2019-06-01] MEDS ORDERED: PT OWN MED DRAWER 7, Y5N ONE (12:58)
[2019-06-01] MEDS: ALBUTEROL SO4 HFA INHALER IH PRN (13:25)
[2019-06-01] MEDS: MELATONIN 5 MG TABLETS PO PRN (22:13)
[2019-06-01] MEDS: THIAMINE HCL 100 MG TABLET (FP) PO SCH (22:13)
[2019-06-01] MEDS: QUEtiapine FUMARATE 50 MG TABLET PO SCH (22:13)
[2019-06-01] MEDS: PRAZOSIN HCL 1 MG CAPSULE PO SCH (22:13)
[2019-06-02] MEDS ORDERED: METHADONE HCL 10 MG TABLET ONE (03:32)
[2019-06-02] MEDS ORDERED: METHADONE HCL 40 MG DISPERSABLE TABLET ONE (03:33)
[2019-06-02] MEDS: GABAPENTIN 100 MG CAPSULE PO SCH ×3 (06:16→21:21)
[2019-06-02] MEDS: METHADONE 80 MG, METHADONE 30 MG PO SCH (06:16)
[2019-06-02] MEDS: CYCLOBENZAPRINE HCL 5 MG TABLET PO SCH ×3 (06:16→21:20)
[2019-06-02] MEDS: PRENATAL VITAMINS W/ FOLIC ACID TABLET (FP) PO SCH (10:15)
[2019-06-02] MEDS: NICOTINE 14 MG/24 HOURS TOPICAL PATCH TD SCH (10:15)
[2019-06-02] MEDS: ACETAMINOPHEN 325 MG TABLET (FP) PO PRN (10:16)
[2019-06-02] MEDS: NICOTINE POLACRILEX 2 MG GUM BC PRN ×2 (10:19→13:56)
[2019-06-02] MEDS: MAG HYDROX/AL HYDROX/SIMETH 30 ML UNIT-DOSE CUP PO PRN (16:59)
[2019-06-02] MEDS: PRAZOSIN HCL 1 MG CAPSULE PO SCH (21:20)
[2019-06-02] MEDS: QUEtiapine FUMARATE 50 MG TABLET PO SCH (21:21)
[2019-06-02] MEDS: THIAMINE HCL 100 MG TABLET (FP) PO SCH (21:21)
[2019-06-02] MEDS: MELATONIN 5 MG TABLETS PO PRN (21:22)
[2019-06-03] MEDS ORDERED: METHADONE HCL 10 MG TABLET ONE (06:15)
[2019-06-03] MEDS ORDERED: METHADONE HCL 40 MG DISPERSABLE TABLET ONE (06:15)
[2019-06-03] MEDS: CYCLOBENZAPRINE HCL 5 MG TABLET PO SCH ×3 (06:24→21:42)
[2019-06-03] MEDS: METHADONE 80 MG, METHADONE 30 MG PO SCH (06:24)
[2019-06-03] MEDS: GABAPENTIN 100 MG CAPSULE PO SCH ×3 (06:24→21:41)
[2019-06-03] MEDS: NICOTINE 14 MG/24 HOURS TOPICAL PATCH TD SCH (10:17)
[2019-06-03] MEDS: ACETAMINOPHEN 325 MG TABLET (FP) PO PRN (10:18)
[2019-06-03] MEDS: PRENATAL VITAMINS W/ FOLIC ACID TABLET (FP) PO SCH (10:18)
[2019-06-03] MEDS: NICOTINE POLACRILEX 2 MG GUM BC PRN (10:20)
[2019-06-03] MEDS ORDERED: QUEtiapine FUMARATE 25 MG TABLET ONE (21:09)
[2019-06-03] MEDS: MELATONIN 5 MG TABLETS PO PRN (21:40)
[2019-06-03] MEDS: PRAZOSIN HCL 1 MG CAPSULE PO SCH (21:41)
[2019-06-03] MEDS: THIAMINE HCL 100 MG TABLET (FP) PO SCH (21:42)
[2019-06-03] MEDS: QUEtiapine FUMARATE 50 MG TABLET PO SCH (21:43)
[2019-06-04] MEDS ORDERED: METHADONE HCL 10 MG TABLET ONE (03:44)
[2019-06-04] MEDS ORDERED: METHADONE HCL 40 MG DISPERSABLE TABLET ONE (03:44)
[2019-06-04] MEDS: METHADONE 80 MG, METHADONE 30 MG PO SCH (06:15)
[2019-06-04] MEDS: CYCLOBENZAPRINE HCL 5 MG TABLET PO SCH ×3 (06:16→21:14)
[2019-06-04] MEDS: GABAPENTIN 100 MG CAPSULE PO SCH ×3 (06:16→21:14)
[2019-06-04] MEDS: PRENATAL VITAMINS W/ FOLIC ACID TABLET (FP) PO SCH (10:01)
[2019-06-04] MEDS: NICOTINE 14 MG/24 HOURS TOPICAL PATCH TD SCH (10:01)
[2019-06-04] MEDS: ACETAMINOPHEN 325 MG TABLET (FP) PO PRN (10:03)
[2019-06-04] MEDS: NICOTINE POLACRILEX 2 MG GUM BC PRN ×2 (10:03→13:08)
[2019-06-04] MEDS: ALBUTEROL SO4 HFA INHALER IH PRN (13:08)
[2019-06-04] MEDS: MELATONIN 5 MG TABLETS PO PRN (21:14)
[2019-06-04] MEDS: QUEtiapine FUMARATE 50 MG TABLET PO SCH (21:14)
[2019-06-04] MEDS: PRAZOSIN HCL 1 MG CAPSULE PO SCH (21:14)
[2019-06-04] MEDS: THIAMINE HCL 100 MG TABLET (FP) PO SCH (21:14)
[2019-06-04] MEDS: MAGNESIUM HYDROX 2400MG/30ML ORAL SUSPENSION 30 ML CUP PO PRN (22:44)
[2019-06-05] MEDS ORDERED: METHADONE HCL 10 MG TABLET ONE (05:45)
[2019-06-05] MEDS ORDERED: METHADONE HCL 40 MG DISPERSABLE TABLET ONE (05:45)
[2019-06-05] MEDS: METHADONE 80 MG, METHADONE 30 MG PO SCH (05:57)
[2019-06-05] MEDS: GABAPENTIN 100 MG CAPSULE PO SCH ×3 (05:58→21:48)
[2019-06-05] MEDS: CYCLOBENZAPRINE HCL 5 MG TABLET PO SCH ×3 (05:58→21:48)
[2019-06-05] MEDS: PRENATAL VITAMINS W/ FOLIC ACID TABLET (FP) PO SCH (09:49)
[2019-06-05] MEDS: NICOTINE 14 MG/24 HOURS TOPICAL PATCH TD SCH (09:49)
[2019-06-05] MEDS: NICOTINE POLACRILEX 2 MG GUM BC PRN (09:50)
[2019-06-05] MEDS: ACETAMINOPHEN 325 MG TABLET (FP) PO PRN ×2 (09:51→17:45)
[2019-06-05] MEDS: MAGNESIUM CITRATE 300 ML BOTTLE PO PRN (12:54)
[2019-06-05] MEDS: THIAMINE HCL 100 MG TABLET (FP) PO SCH (21:48)
[2019-06-05] MEDS: PRAZOSIN HCL 1 MG CAPSULE PO SCH (21:48)
[2019-06-05] MEDS: QUEtiapine FUMARATE 50 MG TABLET PO SCH (21:48)
[2019-06-05] MEDS: MELATONIN 5 MG TABLETS PO PRN (21:49)
[2019-06-06] MEDS ORDERED: METHADONE HCL 40 MG DISPERSABLE TABLET ONE (03:24)
[2019-06-06] MEDS ORDERED: METHADONE HCL 10 MG TABLET ONE (03:24)
[2019-06-06] MEDS: GABAPENTIN 100 MG CAPSULE PO SCH ×3 (06:15→21:10)
[2019-06-06] MEDS: CYCLOBENZAPRINE HCL 5 MG TABLET PO SCH ×3 (06:15→21:10)
[2019-06-06] MEDS: METHADONE 80 MG, METHADONE 30 MG PO SCH (06:15)
[2019-06-06] MEDS: NICOTINE 14 MG/24 HOURS TOPICAL PATCH TD SCH (10:02)
[2019-06-06] MEDS: ALBUTEROL SO4 HFA INHALER IH PRN (10:02)
[2019-06-06] MEDS: PRENATAL VITAMINS W/ FOLIC ACID TABLET (FP) PO SCH (10:02)
[2019-06-06] MEDS: MENTHOL/PHENOL 1 EACH UD MM PRN (10:05)
[2019-06-06] MEDS: NICOTINE POLACRILEX 2 MG GUM BC PRN (10:05)
[2019-06-06] MEDS: guaiFENesin 200 MG/10 ML 10 ML UNIT-DOSE CUPS PO PRN ×2 (10:05→21:11)
[2019-06-06] MEDS: ACETAMINOPHEN 325 MG TABLET (FP) PO PRN (10:06)
[2019-06-06] MEDS: THIAMINE HCL 100 MG TABLET (FP) PO SCH (21:10)
[2019-06-06] MEDS: PRAZOSIN HCL 1 MG CAPSULE PO SCH (21:10)
[2019-06-06] MEDS: QUEtiapine FUMARATE 50 MG TABLET PO SCH (21:10)
[2019-06-06] MEDS: MELATONIN 5 MG TABLETS PO PRN (21:11)
[2019-06-07] MEDS ORDERED: METHADONE HCL 10 MG TABLET PO SCH (06:00)
[2019-06-07] MEDS ORDERED: METHADONE HCL 10 MG TABLET ONE (06:01)
[2019-06-07] MEDS ORDERED: METHADONE HCL 40 MG DISPERSABLE TABLET ONE (06:01)
[2019-06-07] MEDS: METHADONE 80 MG, METHADONE 30 MG PO SCH (06:23)
[2019-06-07] MEDS: GABAPENTIN 100 MG CAPSULE PO SCH ×3 (06:23→21:45)
[2019-06-07] MEDS: CYCLOBENZAPRINE HCL 5 MG TABLET PO SCH ×3 (06:23→21:45)
[2019-06-07] MEDS: NICOTINE 14 MG/24 HOURS TOPICAL PATCH TD SCH (09:51)
[2019-06-07] MEDS: PRENATAL VITAMINS W/ FOLIC ACID TABLET (FP) PO SCH (09:53)
[2019-06-07] MEDS: ALBUTEROL SO4 HFA INHALER IH PRN (09:53)
[2019-06-07] MEDS: NICOTINE POLACRILEX 2 MG GUM BC PRN ×2 (09:53→14:15)
[2019-06-07] MEDS: ACETAMINOPHEN 325 MG TABLET (FP) PO PRN (19:09)
[2019-06-07] MEDS: THIAMINE HCL 100 MG TABLET (FP) PO SCH (21:44)
[2019-06-07] MEDS: PRAZOSIN HCL 1 MG CAPSULE PO SCH (21:45)
[2019-06-07] MEDS: MELATONIN 5 MG TABLETS PO PRN (21:45)
[2019-06-07] MEDS: QUEtiapine FUMARATE 50 MG TABLET PO SCH (21:45)
[2019-06-08] MEDS ORDERED: METHADONE HCL 10 MG TABLET ONE (03:08)
[2019-06-08] MEDS ORDERED: METHADONE HCL 40 MG DISPERSABLE TABLET ONE (03:08)
[2019-06-08] MEDS: METHADONE 80 MG, METHADONE 30 MG PO SCH (06:04)
[2019-06-08] MEDS: GABAPENTIN 100 MG CAPSULE PO SCH ×3 (06:05→21:22)
[2019-06-08] MEDS: CYCLOBENZAPRINE HCL 5 MG TABLET PO SCH ×3 (06:05→21:22)
[2019-06-08] MEDS: NICOTINE 14 MG/24 HOURS TOPICAL PATCH TD SCH (09:56)
[2019-06-08] MEDS: NICOTINE POLACRILEX 2 MG GUM BC PRN (09:57)
[2019-06-08] MEDS: PRENATAL VITAMINS W/ FOLIC ACID TABLET (FP) PO SCH (09:57)
[2019-06-08] MEDS: BENZOCAINE 20 % GEL TUBE MM PRN ×2 (10:11→21:22)
[2019-06-08] MEDS: QUEtiapine FUMARATE 50 MG TABLET PO SCH (21:22)
[2019-06-08] MEDS: THIAMINE HCL 100 MG TABLET (FP) PO SCH (21:22)
[2019-06-08] MEDS: PRAZOSIN HCL 1 MG CAPSULE PO SCH (21:22)
[2019-06-08] MEDS: MELATONIN 5 MG TABLETS PO PRN (21:23)
[2019-06-08] MEDS: MAGNESIUM HYDROX 2400MG/30ML ORAL SUSPENSION 30 ML CUP PO PRN (21:41)
[2019-06-09] MEDS ORDERED: METHADONE HCL 10 MG TABLET ONE (03:18)
[2019-06-09] MEDS ORDERED: METHADONE HCL 40 MG DISPERSABLE TABLET ONE (03:19)
[2019-06-09] MEDS: METHADONE 80 MG, METHADONE 30 MG PO SCH (06:11)
[2019-06-09] MEDS: CYCLOBENZAPRINE HCL 5 MG TABLET PO SCH ×3 (06:12→21:26)
[2019-06-09] MEDS: GABAPENTIN 100 MG CAPSULE PO SCH ×3 (06:12→21:26)
[2019-06-09] MEDS: NICOTINE 14 MG/24 HOURS TOPICAL PATCH TD SCH (09:57)
[2019-06-09] MEDS: PRENATAL VITAMINS W/ FOLIC ACID TABLET (FP) PO SCH (09:57)
[2019-06-09] MEDS: NICOTINE POLACRILEX 2 MG GUM BC PRN (09:59)
[2019-06-09] MEDS: MAGNESIUM CITRATE 300 ML BOTTLE PO PRN (15:39)
[2019-06-09] MEDS ORDERED: PT OWN MED DRAWER 7, Y5N ONE (21:01)
[2019-06-09] MEDS: THIAMINE HCL 100 MG TABLET (FP) PO SCH (21:26)
[2019-06-09] MEDS: QUEtiapine FUMARATE 50 MG TABLET PO SCH (21:26)
[2019-06-09] MEDS: PRAZOSIN HCL 1 MG CAPSULE PO SCH (21:26)
[2019-06-09] MEDS: MELATONIN 5 MG TABLETS PO PRN (21:27)
[2019-06-10] MEDS ORDERED: METHADONE HCL 40 MG DISPERSABLE TABLET ONE (03:39)
[2019-06-10] MEDS ORDERED: METHADONE HCL 10 MG TABLET ONE (03:39)
[2019-06-10] MEDS: METHADONE 80 MG, METHADONE 30 MG PO SCH (06:11)
[2019-06-10] MEDS: CYCLOBENZAPRINE HCL 5 MG TABLET PO SCH ×3 (06:12→21:27)
[2019-06-10] MEDS: GABAPENTIN 100 MG CAPSULE PO SCH ×3 (06:13→21:27)
[2019-06-10] MEDS ORDERED: SODIUM PHOSPHATE/NA BIPHOS 133 ML ENEMA PR ONE (08:43)
[2019-06-10] MEDS: PRENATAL VITAMINS W/ FOLIC ACID TABLET (FP) PO SCH (09:59)
[2019-06-10] MEDS: NICOTINE 14 MG/24 HOURS TOPICAL PATCH TD SCH (09:59)
[2019-06-10] MEDS: NICOTINE POLACRILEX 2 MG GUM BC PRN (10:00)
--- NOTE | 2019-06-10 13:14 | PN ---
Psychiatric Progress Note Vital Signs: Vital Signs Period Temp Pulse Resp BP Sys/Ag Pulse Ox Last 24 Hr 97.7 F 77 16-18 113/72 Date of Session: 06/10/19 Chief Complaint:: " I'm having trouble sleeping." HPI: Patient admitted to [facility] rehab for alcohol and sedative dependence. Patient reports poor sleep. ROS: Patient is coherent, alert + oriented X3. Current Medications: Active Medications Generic Name Dose Route Start Last Admin Trade Name Freq PRN Reason Stop Dose Admin Acetaminophen 650 mg 05/25/19 10:30 06/07/19 19:09 Tylenol - PO 650 mg Q4H PRN Administration PAIN LEVEL 4 - 6 Al Hydroxide/Mg Hydroxide 30 ml 05/24/19 11:18 06/02/19 16:59 Mylanta Oral Suspension - PO 30 ml Q6H PRN Administration DYSPEPSIA Albuterol Sulfate 2 puff 05/24/19 11:20 06/07/19 09:53 Ventolin Hfa Inhaler - IH 2 inh Q4H PRN Administration ASTHMA Benzocaine 1 applic 06/08/19 09:05 06/08/19 21:22 Anbesol - MM 1 applic Q6H PRN Administration FOR TOOTHACHE Cyclobenzaprine HCl 5 mg 05/25/19 11:00 06/10/19 06:12 Cyclobenzaprine Hcl PO 5 mg TID OMERO Administration Eucalyptus/Menthol/Phenol/Sorbitol 1 each 05/24/19 11:18 06/06/19 10:05 Cepastat Lozenge - MM 1 each Q4H PRN Administration SORE THROAT Gabapentin 100 mg 05/24/19 14:00 06/10/19 06:13 Neurontin - PO 100 mg TID OMERO Administration Guaifenesin 10 ml 05/24/19 11:18 06/06/19 21:11 Robitussin - PO 10 ml Q6H PRN Administration COUGH Loperamide HCl 4 mg 05/24/19 11:18 Imodium - PO Q6H PRN DIARRHEA Magnesium Citrate 300 ml 05/24/19 11:18 06/09/19 15:39 Citroma - PO 300 ml Q48H PRN Administration CONSTIPATION Magnesium Hydroxide 30 ml 05/24/19 11:18 06/08/19 21:41 Milk Of Magnesia - PO 30 ml DAILY PRN Administration CONSTIPATION Melatonin 10 mg 05/25/19 14:33 06/09/19 21:27 Melatonin PO 10 mg HS PRN Administration INSOMNIA Methadone HCl 80 mg/ Methadone 110 mg 06/07/19 06:00 06/10/19 06:11 HCl 30 mg PO 110 mg DAILY@0600 OMERO Administration Nicotine 14 mg 05/25/19 10:00 06/10/19 09:59 Nicoderm Patch - TD 14 mg DAILY OMERO Administration Nicotine Polacrilex 2 mg 05/24/19 11:18 06/10/19 10:00 Nicorette Gum - BC 2 mg Q2H PRN Administration NICOTINE REPLACEMENT RX Prazosin HCl 1 mg 05/24/19 22:00 06/09/19 21:26 Minipress - PO 1 mg HS OMERO Administration Multivit/Folic Acid/Iron 1 tab 05/25/19 10:00 06/10/19 09:59 Vitamins (Sjr) - PO 1 tab DAILY OMERO Administration Pseudoephedrine/Triprolidine 1 combo 05/24/19 11:18 Actifed - PO TID PRN NASAL CONGESTION Quetiapine Fumarate 50 mg 05/25/19 22:00 06/09/19 21:26 Seroquel - PO 50 mg HS OMERO Administration Thiamine HCl 100 mg 05/24/19 22:00 06/09/19 21:26 Vitamin B1 - PO 100 mg HS OMERO Administration Medication(s) Change(s): Yes. Current Side Effect: No Lab tests ordered: No Lab tests reviewed: Yes Provider note:: Patient seen by Dr. Rogers for initial psychiatric consultation. Dr. Rogers's note read and appreciated. Patient reports difficulty sleeping which is unresolved by seroquel 50mg HS. Patient seen by telegraphic typewriter mechanic in [facility] on 05/13/19 and given a prescription of zoloft 25mg + Prazosin 1mg HS. Patient did not attend second appointment. Diagnosis of PTSD. Will d/c Seroquel 50mg as per patient's request. Will order Belsomra 10mg HS PRN. Will also restart zoloft 25mg. Benefits and side effects discussed. Verbal consent given. Total face to face time:: 25 Mental Status Exam - Mental Status Exam Alert and Oriented to: Time, Place, Person Cognitive Function: Good Patient Appearance: Well Groomed Mood: Euthymic Affect: Mood Congruent Patient Behavior: Cooperative Speech Pattern: Appropriate Voice Loudness: Normal Thought Process: Goal Oriented Thought Disorder: Not Present Hallucinations: Denies Suicidal Ideation: Denies Homicidal Ideation: Denies Insight/Judgement: Poor Sleep: Poorly Appetite: Fair Muscle strength/Tone: Normal Gait/Station: Normal Psychiatric Treatment Plan - Problem List (1) Alcohol abuse Current Visit: Yes (2) PTSD (post-traumatic stress disorder) Current Visit: Yes (3) Sedative hypnotic or anxiolytic dependence Current Visit: Yes (4) Substance-induced sleep disorder Current Visit: Yes
[2019-06-10] MEDS: THIAMINE HCL 100 MG TABLET (FP) PO SCH (21:27)
[2019-06-10] MEDS: PRAZOSIN HCL 1 MG CAPSULE PO SCH (21:27)
[2019-06-10] MEDS ORDERED: SUVOREXANT 10 MG TABLET PO PRN (22:00)
[2019-06-11] MEDS: ACETAMINOPHEN 325 MG TABLET (FP) PO PRN (05:25)
[2019-06-11] MEDS ORDERED: METHADONE HCL 10 MG TABLET ONE (06:03)
[2019-06-11] MEDS ORDERED: METHADONE HCL 40 MG DISPERSABLE TABLET ONE (06:04)
[2019-06-11] MEDS: CYCLOBENZAPRINE HCL 5 MG TABLET PO SCH ×3 (06:31→21:31)
[2019-06-11] MEDS: GABAPENTIN 100 MG CAPSULE PO SCH ×3 (06:31→21:31)
[2019-06-11] MEDS: METHADONE 80 MG, METHADONE 30 MG PO SCH (06:31)
[2019-06-11] MEDS: ALBUTEROL SO4 HFA INHALER IH PRN (09:51)
[2019-06-11] MEDS: NICOTINE 14 MG/24 HOURS TOPICAL PATCH TD SCH (09:51)
[2019-06-11] MEDS: SERTRALINE HCL 25 MG TABLET (FP) PO SCH (09:51)
[2019-06-11] MEDS: NICOTINE POLACRILEX 2 MG GUM BC PRN (09:51)
[2019-06-11] MEDS: PRENATAL VITAMINS W/ FOLIC ACID TABLET (FP) PO SCH (09:51)
[2019-06-11] MEDS: THIAMINE HCL 100 MG TABLET (FP) PO SCH (21:31)
[2019-06-11] MEDS: PRAZOSIN HCL 1 MG CAPSULE PO SCH (21:31)
[2019-06-11] MEDS: MELATONIN 5 MG TABLETS PO PRN (21:32)
[2019-06-12] MEDS: ACETAMINOPHEN 325 MG TABLET (FP) PO PRN (01:57)
[2019-06-12] MEDS ORDERED: METHADONE HCL 10 MG TABLET ONE (06:00)
[2019-06-12] MEDS ORDERED: METHADONE HCL 40 MG DISPERSABLE TABLET ONE (06:00)
[2019-06-12] MEDS: GABAPENTIN 100 MG CAPSULE PO SCH ×3 (06:27→21:32)
[2019-06-12] MEDS: METHADONE 80 MG, METHADONE 30 MG PO SCH (06:27)
[2019-06-12] MEDS: CYCLOBENZAPRINE HCL 5 MG TABLET PO SCH ×3 (06:27→21:32)
[2019-06-12] MEDS: PRENATAL VITAMINS W/ FOLIC ACID TABLET (FP) PO SCH (09:55)
[2019-06-12] MEDS: SERTRALINE HCL 25 MG TABLET (FP) PO SCH (09:55)
[2019-06-12] MEDS: NICOTINE 14 MG/24 HOURS TOPICAL PATCH TD SCH (09:55)
[2019-06-12] MEDS: NICOTINE POLACRILEX 2 MG GUM BC PRN (09:55)
[2019-06-12] MEDS: THIAMINE HCL 100 MG TABLET (FP) PO SCH (21:31)
[2019-06-12] MEDS: MELATONIN 5 MG TABLETS PO PRN (21:32)
[2019-06-12] MEDS: PRAZOSIN HCL 1 MG CAPSULE PO SCH (21:33)
[2019-06-13] MEDS ORDERED: METHADONE HCL 40 MG DISPERSABLE TABLET ONE (05:37)
[2019-06-13] MEDS ORDERED: METHADONE HCL 10 MG TABLET ONE (05:37)
[2019-06-13] MEDS: METHADONE 80 MG, METHADONE 30 MG PO SCH (05:37)
[2019-06-13] MEDS: CYCLOBENZAPRINE HCL 5 MG TABLET PO SCH ×3 (05:38→21:35)
[2019-06-13] MEDS: GABAPENTIN 100 MG CAPSULE PO SCH ×3 (05:38→21:35)
[2019-06-13] MEDS: NICOTINE 14 MG/24 HOURS TOPICAL PATCH TD SCH (09:49)
[2019-06-13] MEDS: PRENATAL VITAMINS W/ FOLIC ACID TABLET (FP) PO SCH (09:50)
[2019-06-13] MEDS: NICOTINE POLACRILEX 2 MG GUM BC PRN (09:50)
[2019-06-13] MEDS: ALBUTEROL SO4 HFA INHALER IH PRN (09:50)
[2019-06-13] MEDS: SERTRALINE HCL 25 MG TABLET (FP) PO SCH (09:50)
[2019-06-13] MEDS: ACETAMINOPHEN 325 MG TABLET (FP) PO PRN (12:24)
[2019-06-13] MEDS: PRAZOSIN HCL 1 MG CAPSULE PO SCH (21:35)
[2019-06-13] MEDS: MELATONIN 5 MG TABLETS PO PRN (21:35)
[2019-06-13] MEDS: THIAMINE HCL 100 MG TABLET (FP) PO SCH (21:35)
[2019-06-14] MEDS ORDERED: METHADONE HCL 10 MG TABLET PO SCH (06:00)
[2019-06-14] MEDS ORDERED: METHADONE HCL 10 MG TABLET ONE (06:12)
[2019-06-14] MEDS ORDERED: METHADONE HCL 40 MG DISPERSABLE TABLET ONE (06:13)
[2019-06-14] MEDS: METHADONE 80 MG, METHADONE 30 MG PO SCH (06:15)
[2019-06-14] MEDS: CYCLOBENZAPRINE HCL 5 MG TABLET PO SCH ×3 (06:16→21:33)
[2019-06-14] MEDS: GABAPENTIN 100 MG CAPSULE PO SCH ×3 (06:16→21:33)
[2019-06-14] MEDS: SERTRALINE HCL 25 MG TABLET (FP) PO SCH (09:52)
[2019-06-14] MEDS: PRENATAL VITAMINS W/ FOLIC ACID TABLET (FP) PO SCH (09:52)
[2019-06-14] MEDS: NICOTINE 14 MG/24 HOURS TOPICAL PATCH TD SCH (09:52)
[2019-06-14] MEDS: NICOTINE POLACRILEX 2 MG GUM BC PRN (09:52)
[2019-06-14] MEDS: SUVOREXANT 10 MG TABLET PO PRN (21:33)
[2019-06-14] MEDS: PRAZOSIN HCL 1 MG CAPSULE PO SCH (21:33)
[2019-06-14] MEDS: THIAMINE HCL 100 MG TABLET (FP) PO SCH (21:33)
[2019-06-14] MEDS: ALBUTEROL SO4 HFA INHALER IH PRN (21:34)
[2019-06-14] MEDS: MELATONIN 5 MG TABLETS PO PRN (21:35)
[2019-06-15] MEDS ORDERED: METHADONE HCL 40 MG DISPERSABLE TABLET ONE (03:24)
[2019-06-15] MEDS ORDERED: METHADONE HCL 10 MG TABLET ONE (03:24)
[2019-06-15] MEDS: METHADONE 80 MG, METHADONE 30 MG PO SCH (06:17)
[2019-06-15] MEDS: CYCLOBENZAPRINE HCL 5 MG TABLET PO SCH ×3 (06:18→21:23)
[2019-06-15] MEDS: GABAPENTIN 100 MG CAPSULE PO SCH ×3 (06:18→21:23)
[2019-06-15] MEDS: SERTRALINE HCL 25 MG TABLET (FP) PO SCH (09:42)
[2019-06-15] MEDS: PRENATAL VITAMINS W/ FOLIC ACID TABLET (FP) PO SCH (09:42)
[2019-06-15] MEDS: ACETAMINOPHEN 325 MG TABLET (FP) PO PRN (09:43)
[2019-06-15] MEDS: NICOTINE 14 MG/24 HOURS TOPICAL PATCH TD SCH (09:44)
[2019-06-15] MEDS: MENTHOL/PHENOL 1 EACH UD MM PRN (09:45)
[2019-06-15] MEDS ORDERED: PT OWN MED DRAWER 7, Y5N ONE (10:04)
[2019-06-15] MEDS: THIAMINE HCL 100 MG TABLET (FP) PO SCH (21:23)
[2019-06-15] MEDS: PRAZOSIN HCL 1 MG CAPSULE PO SCH (21:23)
[2019-06-15] MEDS: MELATONIN 5 MG TABLETS PO PRN (21:23)
[2019-06-15] MEDS: SUVOREXANT 10 MG TABLET PO PRN (21:26)
[2019-06-16] MEDS ORDERED: METHADONE HCL 40 MG DISPERSABLE TABLET ONE (03:14)
[2019-06-16] MEDS ORDERED: METHADONE HCL 10 MG TABLET ONE (03:14)
[2019-06-16] MEDS: CYCLOBENZAPRINE HCL 5 MG TABLET PO SCH ×3 (06:02→21:28)
[2019-06-16] MEDS: GABAPENTIN 100 MG CAPSULE PO SCH ×3 (06:02→21:28)
[2019-06-16] MEDS: METHADONE 80 MG, METHADONE 30 MG PO SCH (06:02)
[2019-06-16] MEDS: NICOTINE 14 MG/24 HOURS TOPICAL PATCH TD SCH (10:01)
[2019-06-16] MEDS: PRENATAL VITAMINS W/ FOLIC ACID TABLET (FP) PO SCH (10:02)
[2019-06-16] MEDS: NICOTINE POLACRILEX 2 MG GUM BC PRN (10:02)
[2019-06-16] MEDS: SERTRALINE HCL 25 MG TABLET (FP) PO SCH (10:02)
[2019-06-16] MEDS: PRAZOSIN HCL 1 MG CAPSULE PO SCH (21:28)
[2019-06-16] MEDS: THIAMINE HCL 100 MG TABLET (FP) PO SCH (21:28)
[2019-06-16] MEDS: MELATONIN 5 MG TABLETS PO PRN (21:30)
[2019-06-17] MEDS ORDERED: METHADONE HCL 10 MG TABLET ONE (05:55)
[2019-06-17] MEDS ORDERED: METHADONE HCL 40 MG DISPERSABLE TABLET ONE (05:56)
[2019-06-17] MEDS: METHADONE 80 MG, METHADONE 30 MG PO SCH (06:09)
[2019-06-17] MEDS: GABAPENTIN 100 MG CAPSULE PO SCH ×3 (06:10→21:40)
[2019-06-17] MEDS: CYCLOBENZAPRINE HCL 5 MG TABLET PO SCH ×3 (06:10→21:40)
[2019-06-17] MEDS: PRENATAL VITAMINS W/ FOLIC ACID TABLET (FP) PO SCH (09:53)
[2019-06-17] MEDS: NICOTINE POLACRILEX 2 MG GUM BC PRN (09:53)
[2019-06-17] MEDS: SERTRALINE HCL 25 MG TABLET (FP) PO SCH (09:53)
[2019-06-17] MEDS: NICOTINE 14 MG/24 HOURS TOPICAL PATCH TD SCH (09:53)
[2019-06-17] MEDS: ACETAMINOPHEN 325 MG TABLET (FP) PO PRN ×2 (10:33→18:41)
[2019-06-17] MEDS: THIAMINE HCL 100 MG TABLET (FP) PO SCH (21:39)
[2019-06-17] MEDS: MELATONIN 5 MG TABLETS PO PRN (21:39)
[2019-06-17] MEDS: SUVOREXANT 10 MG TABLET PO PRN (21:40)
[2019-06-17] MEDS: PRAZOSIN HCL 1 MG CAPSULE PO SCH (21:40)
[2019-06-18] MEDS ORDERED: METHADONE HCL 40 MG DISPERSABLE TABLET ONE (03:32)
[2019-06-18] MEDS ORDERED: METHADONE HCL 10 MG TABLET ONE (03:32)
[2019-06-18] MEDS: METHADONE 80 MG, METHADONE 30 MG PO SCH (06:22)
[2019-06-18] MEDS: GABAPENTIN 100 MG CAPSULE PO SCH ×3 (06:24→21:41)
[2019-06-18] MEDS: CYCLOBENZAPRINE HCL 5 MG TABLET PO SCH ×3 (06:24→21:41)
[2019-06-18] MEDS: NICOTINE 14 MG/24 HOURS TOPICAL PATCH TD SCH (09:55)
[2019-06-18] MEDS: SERTRALINE HCL 25 MG TABLET (FP) PO SCH (09:55)
[2019-06-18] MEDS: PRENATAL VITAMINS W/ FOLIC ACID TABLET (FP) PO SCH (09:55)
[2019-06-18] MEDS: NICOTINE POLACRILEX 2 MG GUM BC PRN (09:57)
[2019-06-18] MEDS: ALBUTEROL SO4 HFA INHALER IH PRN (14:10)
[2019-06-18] MEDS: MELATONIN 5 MG TABLETS PO PRN (21:41)
[2019-06-18] MEDS: PRAZOSIN HCL 1 MG CAPSULE PO SCH (21:41)
[2019-06-18] MEDS: SUVOREXANT 10 MG TABLET PO PRN (21:42)
[2019-06-18] MEDS: THIAMINE HCL 100 MG TABLET (FP) PO SCH (21:42)
[2019-06-19] MEDS ORDERED: METHADONE HCL 10 MG TABLET ONE (03:09)
[2019-06-19] MEDS ORDERED: METHADONE HCL 40 MG DISPERSABLE TABLET ONE (03:09)
[2019-06-19] MEDS: METHADONE 80 MG, METHADONE 30 MG PO SCH (06:10)
[2019-06-19] MEDS: GABAPENTIN 100 MG CAPSULE PO SCH ×3 (06:11→21:34)
[2019-06-19] MEDS: CYCLOBENZAPRINE HCL 5 MG TABLET PO SCH ×3 (06:11→21:34)
[2019-06-19] MEDS: SERTRALINE HCL 25 MG TABLET (FP) PO SCH (09:45)
[2019-06-19] MEDS: PRENATAL VITAMINS W/ FOLIC ACID TABLET (FP) PO SCH (09:45)
[2019-06-19] MEDS: NICOTINE 14 MG/24 HOURS TOPICAL PATCH TD SCH (09:45)
[2019-06-19] MEDS: ACETAMINOPHEN 325 MG TABLET (FP) PO PRN (12:39)
[2019-06-19] MEDS: MAGNESIUM HYDROX 2400MG/30ML ORAL SUSPENSION 30 ML CUP PO PRN (14:08)
[2019-06-19] MEDS: THIAMINE HCL 100 MG TABLET (FP) PO SCH (21:34)
[2019-06-19] MEDS: PRAZOSIN HCL 1 MG CAPSULE PO SCH (21:34)
[2019-06-19] MEDS: MELATONIN 5 MG TABLETS PO PRN (21:35)
[2019-06-19] MEDS: SUVOREXANT 10 MG TABLET PO PRN (21:35)
[2019-06-19] MEDS ORDERED: SUVOREXANT 10 MG TABLET PO PRN (22:00)
[2019-06-20] MEDS ORDERED: METHADONE HCL 40 MG DISPERSABLE TABLET ONE (06:28)
[2019-06-20] MEDS ORDERED: METHADONE HCL 10 MG TABLET ONE (06:28)
[2019-06-20] MEDS: GABAPENTIN 100 MG CAPSULE PO SCH ×3 (06:29→21:28)
[2019-06-20] MEDS: METHADONE 80 MG, METHADONE 30 MG PO SCH (06:29)
[2019-06-20] MEDS: CYCLOBENZAPRINE HCL 5 MG TABLET PO SCH ×3 (06:29→21:28)
[2019-06-20] MEDS: PRENATAL VITAMINS W/ FOLIC ACID TABLET (FP) PO SCH (09:55)
[2019-06-20] MEDS: SERTRALINE HCL 25 MG TABLET (FP) PO SCH (09:55)
[2019-06-20] MEDS: NICOTINE 14 MG/24 HOURS TOPICAL PATCH TD SCH (09:55)
--- NOTE | 2019-06-20 11:50 | PN ---
[facility] Progress Note Note: Patient is scheduled for discharge tomorrow. Scripts for 30 days supply of medications(Gabapentin 100 mg/tid, Zoloft 25 mg/day) will be electronically transmitted to [facility] at [address] [place], [place] [id number]
[2019-06-20] MEDS: MAGNESIUM CITRATE 300 ML BOTTLE PO PRN (18:42)
[2019-06-20] MEDS: MELATONIN 5 MG TABLETS PO PRN (21:27)
[2019-06-20] MEDS: THIAMINE HCL 100 MG TABLET (FP) PO SCH (21:27)
[2019-06-20] MEDS: PRAZOSIN HCL 1 MG CAPSULE PO SCH (21:28)
[2019-06-21] MEDS ORDERED: METHADONE HCL 40 MG DISPERSABLE TABLET ONE (06:13)
[2019-06-21] MEDS ORDERED: METHADONE HCL 10 MG TABLET ONE (06:13)
[2019-06-21] MEDS: CYCLOBENZAPRINE HCL 5 MG TABLET PO SCH (06:26)
[2019-06-21] MEDS: GABAPENTIN 100 MG CAPSULE PO SCH (06:26)
[2019-06-21] MEDS: METHADONE 80 MG, METHADONE 30 MG PO SCH (06:27)
[2019-06-21 06:49] VITALS: BP 103/69; PULSE 91; TEMP 97.9
--- NOTE | 2019-06-21 08:29 | DS ---
[facility] Rehab Discharge Summary - [facility] Rehab Discharge Summary Admission Date: 05/24/19 Discharge Date: 06/21/19 - History Present History: Alcohol dependence, Opioid dependence, Sedative dependence Pertinent Past History: History of Present Illness: 49 yo with use of Xanax. Hx depression and on MH meds. Hx: Seizures 2 years ago r/t medication withdrawals. Hx: Overdose 2 years ago. Xanax use since age 21. States currently using 3 - sticks/every other day. ( total 6 mg) Alcohol use since age 19. Currently drinks 1 shot liquor about 2 x/month Nicotine use since age 9. Smokes 10cig/day. Heroin use since age 7. Currently @ [facility] OTP x 3 years. Currently on Methadone 100 mg PO daily. Last medicated today. [facility] has a Narcan Kit @ home. Longest sobriety 1yr in 2017. PMHx: HTN, Asthma (last exacerbation 1 yr ago), Migraines, RA, Chronic Back pain r/t Herniated discs(cervical/lumbar), Hand pain (states has carpal tunnel) , MHHx: PTSD, Anxiety. Depression. Sees a MH Provider @ [facility]. On MH meds. Denies thoughts of harming self or others SHx: Domiciled. Unemployed. 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 Patient will return to [facility]) Hospital Course: patient attended groups, had 1:1 meetings with her counselor. Was seen by psychiatric service during her stay. She had no acute medical problems during her stay and her methadone dose was increased 110mg/day after consultation with her program. This provider discussed PrEP with her, but she was not a candidate. - Medication Discharge Medications: Ambulatory Orders Sertraline HCl [Zoloft] 25 mg PO DAILY #7 tablet 05/13/19 Methadone [Dolophine -] 100 mg PO DAILY 05/24/19 Sulfamethoxazole/Trimethoprim [Bactrim DS -] 1 tab PO BID 05/24/19 Gabapentin [Neurontin -] 100 mg PO TID #90 capsule 06/20/19 Sertraline HCl [Zoloft -] 25 mg PO DAILY #30 tablet 06/20/19 Albuterol Sulfate Inhaler - [Ventolin HFA Inhaler -] 2 inhaler PO Q4H PRN #1 inhaler 06/21/19 Gabapentin [Neurontin -] 100 mg PO TID #20 capsule 06/21/19 Prazosin HCl 1 mg PO HS #7 capsule 06/21/19 - Medication-Assisted Treatment (MAT) Medication-Assisted Treatment (MAT): Yes MAT Follow-up Referral: [facility] - Discharge Instructions Diet, activity, other medical instructions: Diet: as tolerated Activity: as tolerated Other medical instructions: Please follow up with aftercare. - Diagnosis (1) Opioid dependence on agonist therapy Current Visit: Yes Status: Chronic (2) Alcohol dependence, uncomplicated Current Visit: No Status: Chronic (3) Benzodiazepine dependence Current Visit: No Status: Chronic - Follow-up Referral Minutes to complete discharge: 20 - AMA Did Patient Leave Against Medical Advice: No
[2019-06-21] MEDS: SERTRALINE HCL 25 MG TABLET (FP) PO SCH (09:21)
[2019-06-21] MEDS: PRENATAL VITAMINS W/ FOLIC ACID TABLET (FP) PO SCH (09:21)
[2019-06-21] MEDS: NICOTINE 14 MG/24 HOURS TOPICAL PATCH TD SCH (09:22)
== END 2019-06-21 09:30 | disposition home or self-care (01) | DRG 772 ==
LOC: YASAS 13:01 → Y3E 13:02
PROVIDERS: ADMIT Neuromusculoskeletal Medicine & OMM; ATTEND Neuromusculoskeletal Medicine & OMM
PROC: HZ42ZZZ Group Counseling for Substance Abuse Treatment, Cognitive-Behavioral (ICD-10-PCS; principal; 2019-05-24)
DX: F10.20 Alcohol dependence, uncomplicated (principal); F11.20 Opioid dependence, uncomplicated; F13.20 Sedative, hypnotic or anxiolytic dependence, uncomplicated; F19.282 Other psychoactive substance dependence with psychoactive substance-induced sleep disorder; F19.24 Other psychoactive substance dependence with psychoactive substance-induced mood disorder; F43.10 Post-traumatic stress disorder, unspecified; F41.8 Other specified anxiety disorders; F32.9 Major depressive disorder, single episode, unspecified; I10 Essential (primary) hypertension; M06.9 Rheumatoid arthritis, unspecified; Z86.69 Personal history of other diseases of the nervous system and sense organs; Z87.09 Personal history of other diseases of the respiratory system; Z87.39 Personal history of other diseases of the musculoskeletal system and connective tissue; Z88.8 Allergy status to other drugs, medicaments and biological substances; Z88.6 Allergy status to analgesic agent
CPT/HCPCS: 36415; 87389; G0008; Q2036

== ENCOUNTER 2020-02-06 10:17 | Inpatient (IN) | payer OTHER ==
--- NOTE | 2020-02-06 11:55 | HP ---
CIWA Score - Admission Criteria [facility] Guidelines: Admission for Medically Managed Detox: Requires at least one of the followin. CIWA greater than 12 2. Seizures within the past 24 hours 3. Delirium tremens within the past 24 hours 4. Hallucinations within the past 24 hours 5. Acute intervention needed for co occurring medical disorder 6. Acute intervention needed for co occurring psychiatric disorder 7. Severe withdrawal that cannot be handled at a lower level of care (continued vomiting, continued diarrhea, abnormal vital signs) requiring intravenous medication and/or fluids 8. Admitting History and Physical - Admission Chief Complaint: Ms. Quintero is a 49 yo woman who states "I'm tired of being on Xanax, I can't keep doing this". History of Present Illness: Ms. Quintero is a 49 yo woman who states "I'm tired of being on Xanax, I can't keep doing this". She is on opioid agonist therapy. PM: Asthma, Seizure (associated with drug use), HTN, GERD, herniated cervical and lumbar discs, lumbar radiculopathy on the left, migraine headaches 3-4 times a week PSH; C section x 2 Psych: depression: SA as a teenager, No SI at this time SOC: Legal: probation mandates her - Substance Use History Xanax Substance amount: 4-6 tabs 2mg tabs Frequency of use: Daily Substance route: Oral Date of Last Use: 02/06/20 First use age 37y Heroin Substance amount: 1-2 bags Frequency of use: Less than 3 times per week Substance route: Inhalation (ex: sniffing or snorting) Date of Last Use: 02/05/20 First use ag 28 y. OD x 3, last OD 10 years ago. Methadone: 130 mg, [facility] History Source: Patient Limitations to Obtaining History: No Limitations - Past Medical History ...LMP: 05/03/19 - Smoking History Smoking history: Unknown if ever smoked Have you smoked in the past 12 months: Yes Aproximately how many cigarettes per day: 10 - Alcohol/Substance Use Hx Alcohol Use: No Admission ROS S - HPI Allergies/Adverse Reactions: Allergies Allergy/AdvReac Type Severity Reaction Status Date / Time meloxicam [From Mobic] Allergy Intermediate Verified 02/06/20 12:30 ibuprofen [From Motrin] Allergy Mild Rash Verified 02/06/20 12:30 Exam Limitations: No Limitations - Ebola screening Have you traveled outside of the country in the last 21 days: No Have you been sick,other than usual withdrawal symptoms: No Do you have a fever: No - Review of Systems Constitutional: Other (30 lb weight gain in the past 2-3 mos) EENT: reports: Blurred Vision (wears glasses, has with her) Respiratory: reports: SOB with Exertion (asthma, has albuterol inhaler, uses bid), SOB at Rest Cardiac: reports: No Symptoms Reported GI: reports: Diarrhea (yesterday), Nausea (episodic) : reports: No Symptoms Reported Musculoskeletal: reports: Back Pain (radiating pain to the left lateral thigh) Integumentary: reports: No Symptoms Reported, Pruritus (left anterior ankle x 1 week) Neuro: reports: Headache (hx of migraine, 3 days per week, takes Tylenol, Motrin allergic, pending MD win) Endocrine: reports: No Symptoms Reported Hematology: reports: No Symptoms Reported Psychiatric: reports: Depressed (on meds, has with her) Patient History - Patient Medical History Hx Anemia: No Hx Asthma: Yes Hx Chronic Obstructive Pulmonary Disease (COPD): No Hx Cancer: No Hx Cardiac Disorders: No Hx Hypertension: Yes HX Cerebrovascular Accident: No Hx Seizures: Yes (7yrs ago from drugs) Hx Diabetes: No Hx Gastrointestinal Disorders: Yes Hx Liver Disease: No Hx Genitourinary Disorders: No Hx Sexually Transmitted Disorders: No Hx Renal Disease (ESRD): No Hx Human Immunodeficiency Virus (HIV): No Hx Hepatitis C: No Hx Depression: Yes Hx Suicide Attempt: Yes (as a teenager) Hx Schizophrenia: No - Patient Surgical History Past Surgical History: Yes Hx Neurologic Surgery: No Hx Cataract Extraction: No Hx Cardiac Surgery: No Hx Lung Surgery: No Hx Breast Surgery: No Hx Breast Biopsy: No Hx Abdominal Surgery: No Hx Appendectomy: No Hx Cholecystectomy: Yes (tanya swann 1999) Hx Genitourinary Surgery: No Hx Section: Yes () Hx Orthopedic Surgery: Yes (sx for carpal tunnel R hand) Anesthesia Reaction: No - PPD History Date: 04/24/19 Results: 0mm - Reproductive History Last Menstrual Period: 05/03/19 - Smoking Cessation Smoking history: Unknown if ever smoked Have you smoked in the past 12 months: Yes Aproximately how many cigarettes per day: 30 Hx Chewing Tobacco Use: No Initiated information on smoking cessation: Yes 'Breaking Loose' booklet given: 02/06/20 Admission Physical Exam [facility] - Physical HEENTM: Yes: EOMI, Hearing grossly Normal, Normocephalic, Normal Voice Respiratory: Yes: Lungs Clear, Normal Breath Sounds, No Accessory Muscle Use Neck: Yes: Within Normal Limits, Supple Breast: Yes: Breast Exam Deferred Cardiology: Yes: Regular Rhythm, Regular Rate, S1, S2 Abdominal: Yes: Non Tender, Soft, Protuberent, Tenderness (mild periumbilical) Back: Yes: Normal Inspection Musculoskeletal: Yes: Gait Steady Extremities: Yes: Non-Tender, Erythema (bilateral anterior legs) Cleared for Admission [facility] - Detox or Rehab [facility] Level of Care: Medically Managed Detox Regimen/Protocol: Ativan Breathalyzer - Breathalyzer Breathalyzer: 0.040 Urine Drug Screen - Test Device Lot number: [id number] Expiration date: 12/31/20 - Control Is test valid?: Yes - Results Drug screen NEGATIVE: Yes Urine drug screen results: MTD-Methadone, BZO-Benzodiazepines Inpatient Rehab Admission - Rehab Decision to Admit Inpatient rehab admission?: No
[2020-02-06] MEDS ORDERED: BISMUTH SUBSALICYLATE 524 MG/30 ML UD PO PRN (12:38)
[2020-02-06] MEDS ORDERED: METHOCARBAMOL 500 MG TABLET PO PRN (12:38)
[2020-02-06] MEDS ORDERED: MAG HYDROX/AL HYDROX/SIMETH 30 ML UNIT-DOSE CUP PO PRN (12:38)
[2020-02-06] MEDS ORDERED: ONDANSETRON *ODT* 4 MG TABLET SL PRN (12:38)
[2020-02-06] MEDS ORDERED: LORazepam 1 MG TABLET PO PRN (12:38)
[2020-02-06] MEDS ORDERED: MAGNESIUM CITRATE 300 ML BOTTLE PO PRN (12:38)
[2020-02-06] MEDS ORDERED: ACETAMINOPHEN 325 MG TABLET (FP) PO PRN ×2 (12:38)
[2020-02-06] MEDS ORDERED: MAGNESIUM HYDROX 2400MG/30ML ORAL SUSPENSION 30 ML CUP PO PRN (12:38)
[2020-02-06] MEDS ORDERED: MENTHOL/PHENOL 1 EACH UD MM PRN (12:38)
[2020-02-06] MEDS ORDERED: ALBUTEROL SO4 HFA INHALER IH PRN (12:49)
[2020-02-06] MEDS ORDERED: METHADONE HCL 10 MG TABLET PO SCH (13:15)
[2020-02-06 13:34] VITALS: BMI 32.9
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
[2020-02-06] MEDS ORDERED: METHADONE 120 MG, METHADONE 10 MG PO ONE (14:30)
[2020-02-06] MEDS ORDERED: METHADONE HCL 40 MG DISPERSABLE TABLET ONE (15:15)
[2020-02-06] MEDS ORDERED: METHADONE HCL 10 MG TABLET ONE (15:15)
[2020-02-06] MEDS: hydrOXYzine PAMOATE 25 MG CAPSULE (FP) PO SCH ×3 (15:18→22:09)
[2020-02-06] MEDS: NICOTINE 21 MG/24 HOURS TOPICAL PATCH TD SCH (15:18)
--- NOTE | 2020-02-06 15:18 | EKG ---
Test Reason : Blood Pressure : / mmHG Vent. Rate : 058 BPM Atrial Rate : 058 BPM P-R Int : 158 ms QRS Dur : 084 ms QT Int : 488 ms P-R-T Axes : 017 028 028 degrees QTc Int : 479 ms SINUS BRADYCARDIA OTHERWISE NORMAL ECG WHEN COMPARED WITH ECG OF 20-MAY-2019 19:44, NO SIGNIFICANT CHANGE WAS FOUND Confirmed by Michael Stubbs ([id number]) on 02/06/2020 3:17:42 PM Referred By: Confirmed By:Michael Stubbs
[2020-02-06 16:55] LABS: HEMATOCRIT 39.2 % (32.4-45.2); HEMOGLOBIN 13.1 GM/dL (10.7-15.3); MCH 33.4 pg (25.7-33.7); MCHC 33.5 g/dl (32.0-36.0); MEAN CELL VOLUME 99.5 fl (80-96); PLATELET COUNT 259 K/MM3 (134-434); RBC 3.94 M/mm3 (3.60-5.2); RDW 14.2 % (11.6-15.6); WHITE BLOOD COUNT 5.9 K/mm3 (4.0-10.0)
[2020-02-06 17:06] LABS: ALBUMIN 3.5 g/dl (3.4-5.0); BILIRUBIN,TOTAL 0.6 mg/dL (0.2-1); CALCIUM 8.7 mg/dL (8.5-10.1); CREATININE 0.7 mg/dL (0.55-1.3); POTASSIUM 3.6 mmol/L (3.5-5.1); TOT PROT 6.9 g/dl (6.4-8.2)
[2020-02-06] MEDS: LORazepam 2 MG TABLET PO SCH ×2 (17:42→22:09)
[2020-02-06] MEDS: ATORVASTATIN CA 40 MG TABLET (FP) PO SCH (22:09)
[2020-02-06] MEDS: THIAMINE HCL 100 MG TABLET (FP) PO SCH (22:09)
[2020-02-06] MEDS: traZODone HCL 50 MG TABLET (FP) PO SCH (22:09)
[2020-02-06] MEDS: MELATONIN 5 MG TABLETS PO SCH (22:13)
[2020-02-07] MEDS ORDERED: METHADONE HCL 40 MG DISPERSABLE TABLET ONE (04:28)
[2020-02-07] MEDS ORDERED: METHADONE HCL 10 MG TABLET ONE (04:28)
[2020-02-07] MEDS: METHADONE 120 MG, METHADONE 10 MG PO SCH (06:04)
[2020-02-07] MEDS: hydrOXYzine PAMOATE 25 MG CAPSULE (FP) PO SCH ×5 (06:04→22:08)
[2020-02-07] MEDS: LORazepam 2 MG TABLET PO SCH ×4 (06:05→22:08)
[2020-02-07] MEDS: PRENATAL VITAMINS W/ FOLIC ACID TABLET (FP) PO SCH (10:37)
[2020-02-07] MEDS: NICOTINE 21 MG/24 HOURS TOPICAL PATCH TD SCH (10:37)
--- NOTE | 2020-02-07 11:34 | PN ---
S CIWA - CIWA Score Nausea/Vomitin Muscle Tremors: 2 Anxiety: 2 Agitation: 2 Paroxysmal Sweats: No Perspiration Orientation: 0-Oriented Tacttile Disturbances: 1-Very Mild Itch/Numbness Auditory Disturbances: 0-None Visual Disturbances: 0-None Headache: 2-Mild CIWA-Ar Total Score: 11 S Progress Note (SOAP) Subjective: alert,irritable,anxious,interrupted sleep,tremor,pain in the body,ambulation on the ubit Objective: 02/07/20 11:32 Vital Signs Temperature 97.7 F 02/07/20 08:42 Pulse Rate 58 L 02/07/20 08:42 Respiratory Rate 20 02/07/20 08:42 Blood Pressure 109/68 02/07/20 08:42 O2 Sat by Pulse Oximetry (%) 96 02/07/20 06:39 02/07/20 11:33 Laboratory Last Values WBC 5.9 K/mm3 (4.0-10.0) 02/06/20 12:40 RBC 3.94 M/mm3 (3.60-5.2) 02/06/20 12:40 Hgb 13.1 GM/dL (10.7-15.3) 02/06/20 12:40 Hct 39.2 % (32.4-45.2) 02/06/20 12:40 MCV 99.5 fl (80-96) H 02/06/20 12:40 MCH 33.4 pg (25.7-33.7) 02/06/20 12:40 MCHC 33.5 g/dl (32.0-36.0) 02/06/20 12:40 RDW 14.2 % (11.6-15.6) 02/06/20 12:40 Plt Count 259 K/MM3 (134-434) 02/06/20 12:40 MPV 8.0 fl (7.5-11.1) 02/06/20 12:40 Sodium 141 mmol/L (136-145) 02/06/20 12:40 Potassium 3.6 mmol/L (3.5-5.1) 02/06/20 12:40 Chloride 104 mmol/L (98-107) 02/06/20 12:40 Carbon Dioxide 27 mmol/L (21-32) 02/06/20 12:40 Anion Gap 10 MMOL/L (8-16) 02/06/20 12:40 BUN 9.0 mg/dL (7-18) 02/06/20 12:40 Creatinine 0.7 mg/dL (0.55-1.3) 02/06/20 12:40 Est GFR (CKD-EPI)AfAm 116.27 02/06/20 12:40 Est GFR (CKD-EPI)NonAf 100.32 02/06/20 12:40 Random Glucose 80 mg/dL (74-106) 02/06/20 12:40 Calcium 8.7 mg/dL (8.5-10.1) 02/06/20 12:40 Total Bilirubin 0.6 mg/dL (0.2-1) 02/06/20 12:40 AST 80 U/L (15-37) H 02/06/20 12:40 ALT 96 U/L (13-61) H 02/06/20 12:40 Alkaline Phosphatase 91 U/L (45-117) 02/06/20 12:40 Total Protein 6.9 g/dl (6.4-8.2) 02/06/20 12:40 Albumin 3.5 g/dl (3.4-5.0) 02/06/20 12:40 POC Urine HCG, Qual Negative 02/06/20 15:08 Syphilis Serology Non-reactive (NONREACTIVE) 02/06/20 12:40 Assessment: 02/07/20 11:33 withdrawal symptom Plan: continue detox ativan regimen,mmtp 13o mgs /day,close monitoring
[2020-02-07] MEDS: THIAMINE HCL 100 MG TABLET (FP) PO SCH (22:08)
[2020-02-07] MEDS: traZODone HCL 50 MG TABLET (FP) PO SCH (22:08)
[2020-02-07] MEDS: ATORVASTATIN CA 40 MG TABLET (FP) PO SCH (22:08)
[2020-02-07] MEDS: MELATONIN 5 MG TABLETS PO SCH (22:44)
[2020-02-08] MEDS ORDERED: METHADONE HCL 40 MG DISPERSABLE TABLET ONE (03:59)
[2020-02-08] MEDS ORDERED: METHADONE HCL 10 MG TABLET ONE (03:59)
[2020-02-08] MEDS: METHADONE 120 MG, METHADONE 10 MG PO SCH (05:49)
[2020-02-08] MEDS: hydrOXYzine PAMOATE 25 MG CAPSULE (FP) PO SCH ×2 (05:49→10:09)
[2020-02-08] MEDS: LORazepam 1 MG TABLET PO SCH ×4 (05:49→22:18)
[2020-02-08] MEDS: PRENATAL VITAMINS W/ FOLIC ACID TABLET (FP) PO SCH (10:07)
[2020-02-08] MEDS: NICOTINE 21 MG/24 HOURS TOPICAL PATCH TD SCH (10:07)
[2020-02-08] MEDS ORDERED: hydrOXYzine PAMOATE 25 MG CAPSULE (FP) PO PRN (10:24)
--- NOTE | 2020-02-08 11:48 | PN ---
[facility] CIWA - CIWA Score Nausea/Vomitin-No Nausea/No Vomiting Muscle Tremors: 3 Anxiety: 2 Agitation: 2 Paroxysmal Sweats: 2 Orientation: 0-Oriented Tacttile Disturbances: 0-None Auditory Disturbances: 0-None Visual Disturbances: 0-None Headache: 0-None Present CIWA-Ar Total Score: 9 S Progress Note (SOAP) Subjective: sweats shakes nausea body aches interrupted sleep Objective: 02/08/20 11:50 Vital Signs Temperature 97.3 F L 02/08/20 09:04 Pulse Rate 71 02/08/20 09:04 Respiratory Rate 02/08/20 09:04 Blood Pressure 128/72 02/08/20 09:04 O2 Sat by Pulse Oximetry (%) 95 02/08/20 05:36 Laboratory Tests 02/06/20 02/06/20 02/06/20 12:40 12:40 12:40 WBC 5.9 RBC 3.94 Hgb 13.1 Hct 39.2 MCV 99.5 H MCH 33.4 MCHC 33.5 RDW 14.2 Plt Count 259 MPV 8.0 Sodium 141 Potassium 3.6 Chloride 104 Carbon Dioxide 27 Anion Gap 10 BUN 9.0 Creatinine 0.7 Est GFR (CKD-EPI)AfAm 116.27 Est GFR (CKD-EPI)NonAf 100.32 Random Glucose 80 Calcium 8.7 Total Bilirubin 0.6 AST 80 H ALT 96 H Alkaline Phosphatase 91 Total Protein 6.9 Albumin 3.5 POC Urine HCG, Qual Syphilis Serology Non-reactive COVID-19 ([facility]LEY) 02/06/20 02/06/20 14:40 15:08 WBC RBC Hgb Hct MCV MCH MCHC RDW Plt Count MPV Sodium Potassium Chloride Carbon Dioxide Anion Gap BUN Creatinine Est GFR (CKD-EPI)AfAm Est GFR (CKD-EPI)NonAf Random Glucose Calcium Total Bilirubin AST ALT Alkaline Phosphatase Total Protein Albumin POC Urine HCG, Qual Negative Syphilis Serology COVID-19 ([facility]LEY) Not detected labs noted aaox3 ambulating no acute distress Assessment: 02/08/20 11:50 withdrawals Plan: continue detox increase fluids zofran sl prn
[2020-02-08] MEDS: traZODone HCL 50 MG TABLET (FP) PO SCH (22:18)
[2020-02-08] MEDS: THIAMINE HCL 100 MG TABLET (FP) PO SCH (22:18)
[2020-02-08] MEDS: ATORVASTATIN CA 40 MG TABLET (FP) PO SCH (22:18)
[2020-02-08] MEDS: MELATONIN 5 MG TABLETS PO SCH (22:25)
[2020-02-09] MEDS ORDERED: LORazepam 0.5 MG TABLET PO PRN
[2020-02-09] MEDS ORDERED: METHADONE HCL 10 MG TABLET ONE (04:11)
[2020-02-09] MEDS ORDERED: METHADONE HCL 40 MG DISPERSABLE TABLET ONE (04:11)
[2020-02-09] MEDS: LORazepam 0.5 MG TABLET PO SCH ×4 (06:02→22:08)
[2020-02-09] MEDS: METHADONE 120 MG, METHADONE 10 MG PO SCH (06:02)
--- NOTE | 2020-02-09 07:37 | BHS.RME ---
Substance Use & Tx History - Substance Use History Heroin Substance amount: 1-2 bags Frequency of use: Less than 3 times per week Substance route: Inhalation (ex: sniffing or snorting) Date of Last Use: 02/05/20 Xanax Substance amount: 4-6 tabs 2mg tabs Frequency of use: Daily Substance route: Oral Date of Last Use: 02/06/20 Physical/Psych/Mental Status - Behavior General Behavior: Decreased activity Eye Contact: Normal - Cooperativeness Cooperativeness: Cooperative - Thinking Thought Processes: Tight, Logical, Goal Directed Thought content: Future oriented - Physical Health Problems Is patient presently having any pain?: No Does patient presently have any injuries (include location): No Does patient currently have a fever: No Is patient : No CIWA Nausea/Vomitin-Mild Nausea/No Vomiting Muscle Tremors: 1-None Visible, but [place] Anxiety: 3 Agitation: 1-Slight > Activity Paroxysmal Sweats: No Perspiration Orientation: 1-Uncertain about Date Tacttile Disturbances: 0-None Auditory Disturbances: 0-None Visual Disturbances: 0-None Headache: 0-None Present (due to use of 3 xanax pills today.) CIWA-Ar Total Score: 7
[2020-02-09] MEDS: PRENATAL VITAMINS W/ FOLIC ACID TABLET (FP) PO SCH (10:36)
[2020-02-09] MEDS: NICOTINE 21 MG/24 HOURS TOPICAL PATCH TD SCH (10:36)
--- NOTE | 2020-02-09 11:21 | PN ---
S CIWA - CIWA Score Nausea/Vomitin-No Nausea/No Vomiting Muscle Tremors: 2 Anxiety: 1-Mildly Anxious Agitation: 1-Slight > Activity Paroxysmal Sweats: No Perspiration Orientation: 0-Oriented Tacttile Disturbances: 0-None Auditory Disturbances: 0-None Visual Disturbances: 0-None Headache: 0-None Present CIWA-Ar Total Score: 4 BHS Progress Note (SOAP) Subjective: feeling better Objective: 02/09/20 11:22 Vital Signs Temperature 97.5 F L 02/09/20 09:10 Pulse Rate 62 02/09/20 09:52 Respiratory Rate 18 02/09/20 09:10 Blood Pressure 127/77 02/09/20 09:10 O2 Sat by Pulse Oximetry (%) 95 02/09/20 05:31 aaox3 ambulating no acute distress Assessment: 02/09/20 11:22 mild withdrawals Plan: continue detox d/c in am
[2020-02-09] MEDS: THIAMINE HCL 100 MG TABLET (FP) PO SCH (22:08)
[2020-02-09] MEDS: ATORVASTATIN CA 40 MG TABLET (FP) PO SCH (22:08)
[2020-02-09] MEDS: MELATONIN 5 MG TABLETS PO SCH (22:09)
[2020-02-09] MEDS: traZODone HCL 50 MG TABLET (FP) PO SCH (22:09)
[2020-02-10] MEDS ORDERED: METHADONE HCL 40 MG DISPERSABLE TABLET ONE (03:49)
[2020-02-10] MEDS ORDERED: METHADONE HCL 10 MG TABLET ONE (03:49)
[2020-02-10] MEDS ORDERED: LORazepam 0.5 MG TABLET PO ONE (05:00)
[2020-02-10] MEDS: METHADONE 120 MG, METHADONE 10 MG PO SCH (05:59)
--- NOTE | 2020-02-10 08:50 | DS ---
[facility] Detox Discharge Summary Admission Date: 02/06/20 Discharge Date: 02/10/20 - History Present History: Alcohol Dependence, MMTP - Physical Exam Results Vital Signs: Vital Signs Temperature 98 F 02/10/20 05:41 Pulse Rate 59 L 02/10/20 05:41 Respiratory Rate 16 02/10/20 05:41 Blood Pressure 135/77 02/10/20 05:41 O2 Sat by Pulse Oximetry (%) 94 L 02/10/20 05:41 Pertinent Admission Physical Exam Findings: Vital Signs Temperature 98 F 02/10/20 05:41 Pulse Rate 59 L 02/10/20 05:41 Respiratory Rate 16 02/10/20 05:41 Blood Pressure 135/77 02/10/20 05:41 O2 Sat by Pulse Oximetry (%) 94 L 02/10/20 05:41 Laboratory Tests 02/06/20 02/06/20 02/06/20 12:40 12:40 12:40 WBC 5.9 RBC 3.94 Hgb 13.1 Hct 39.2 MCV 99.5 H MCH 33.4 MCHC 33.5 RDW 14.2 Plt Count 259 MPV 8.0 Sodium 141 Potassium 3.6 Chloride 104 Carbon Dioxide 27 Anion Gap 10 BUN 9.0 Creatinine 0.7 Est GFR (CKD-EPI)AfAm 116.27 Est GFR (CKD-EPI)NonAf 100.32 Random Glucose 80 Calcium 8.7 Total Bilirubin 0.6 AST 80 H ALT 96 H Alkaline Phosphatase 91 Total Protein 6.9 Albumin 3.5 POC Urine HCG, Qual Syphilis Serology Non-reactive COVID-19 ([facility]) 02/06/20 02/06/20 14:40 15:08 WBC RBC Hgb Hct MCV MCH MCHC RDW Plt Count MPV Sodium Potassium Chloride Carbon Dioxide Anion Gap BUN Creatinine Est GFR (CKD-EPI)AfAm Est GFR (CKD-EPI)NonAf Random Glucose Calcium Total Bilirubin AST ALT Alkaline Phosphatase Total Protein Albumin POC Urine HCG, Qual Negative Syphilis Serology COVID-19 ([facility]) Not detected aaox3 ambulating no acute distress lungs CTA - Treatment Hospital Course: Detox Protocol Followed, Detoxed Safely, Responded well, Discharged Condition Good, Rehab Referral Accepted - Medication Discharge Medications: Ambulatory Orders Methadone [Dolophine -] 130 mg PO DAILY 05/24/19 Albuterol Sulfate Inhaler - [Ventolin HFA Inhaler -] 2 inhaler PO Q4H PRN #1 inhaler 06/21/19 hydrOXYzine PAMOATE [Vistaril -] 50 mg PO DAILY PRN #30 capsule 12/07/19 traZODone HCL [Trazodone HCl] 100 mg PO HS #30 tablet 02/01/20 Atorvastatin Ca [Lipitor] 40 mg PO HS 02/06/20 - Diagnosis (1) Alcohol dependence, uncomplicated Current Visit: Yes Status: Chronic (2) History of posttraumatic stress disorder (PTSD) Current Visit: Yes Status: Chronic (3) Insomnia Current Visit: Yes Status: Chronic (4) Nicotine dependence Current Visit: Yes Status: Chronic Qualifiers: Nicotine product type: cigarettes Substance use status: uncomplicated Qualified Code(s): F17.210 - Nicotine dependence, cigarettes, uncomplicated (5) Opioid dependence on agonist therapy Current Visit: Yes Status: Chronic (6) Sedative hypnotic or anxiolytic dependence Current Visit: Yes Status: Chronic (7) Substance induced mood disorder Current Visit: Yes Status: Chronic (8) PTSD (post-traumatic stress disorder) Current Visit: No Status: Acute (9) Sedative, hypnotic, 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 Current Visit: Yes Status: Chronic (10) Substance-induced sleep disorder Current Visit: No Status: Acute (11) Benzodiazepine dependence Current Visit: Yes Status: Chronic (12) HTN (hypertension) Current Visit: Yes Status: Chronic Qualifiers: Hypertension type: essential hypertension Qualified Code(s): I10 - Essential (primary) hypertension (13) History of arthritis Current Visit: No Status: Chronic (14) History of asthma Current Visit: No Status: Chronic (15) Methadone maintenance therapy patient Current Visit: Yes Status: Chronic (16) Opioid dependence on agonist therapy Current Visit: No Status: Chronic (17) History of seizures Current Visit: No Status: Suspected - AMA Did Patient Leave Against Medical Advice: No
[2020-02-10 10:02] VITALS: BP 158/83; PULSE 74; TEMP 97.7
[2020-02-10] MEDS: NICOTINE 21 MG/24 HOURS TOPICAL PATCH TD SCH (10:33)
[2020-02-10] MEDS: PRENATAL VITAMINS W/ FOLIC ACID TABLET (FP) PO SCH (10:39)
== END 2020-02-10 11:25 | disposition other institution (70) | DRG 773 ==
LOC: YASAS 10:17 → Y6N 14:08
PROVIDERS: ADMIT Allergy & Immunology; ATTEND Allergy & Immunology
PROC: HZ2ZZZZ Detoxification Services for Substance Abuse Treatment (ICD-10-PCS; principal; 2020-02-06)
DX: F11.20 Opioid dependence, uncomplicated (principal); F13.20 Sedative, hypnotic or anxiolytic dependence, uncomplicated; F17.210 Nicotine dependence, cigarettes, uncomplicated; F19.280 Other psychoactive substance dependence with psychoactive substance-induced anxiety disorder; F19.282 Other psychoactive substance dependence with psychoactive substance-induced sleep disorder; F19.24 Other psychoactive substance dependence with psychoactive substance-induced mood disorder; F43.10 Post-traumatic stress disorder, unspecified; G47.00 Insomnia, unspecified; G43.909 Migraine, unspecified, not intractable, without status migrainosus; I10 Essential (primary) hypertension; K21.9 Gastro-esophageal reflux disease without esophagitis; J45.909 Unspecified asthma, uncomplicated; M06.9 Rheumatoid arthritis, unspecified; M50.20 Other cervical disc displacement, unspecified cervical region; M51.16 Intervertebral disc disorders with radiculopathy, lumbar region; R73.03 Prediabetes; Z86.69 Personal history of other diseases of the nervous system and sense organs; Z87.39 Personal history of other diseases of the musculoskeletal system and connective tissue; Z90.49 Acquired absence of other specified parts of digestive tract; Z91.5 Personal history of self-harm; Z56.0 Unemployment, unspecified
CPT/HCPCS: 36415; 80053; 81025; 85027; 86780; 93005; 93010; U0003

== ENCOUNTER 2021-08-27 13:24 | Inpatient (IN) | payer OTHER ==
[2021-08-27] MEDS ORDERED: chlordiazePOXIDE HCL 25 MG CAPSULE PO PRN (13:48)
[2021-08-27] MEDS ORDERED: MAGNESIUM CITRATE 300 ML BOTTLE PO PRN (13:48)
[2021-08-27] MEDS ORDERED: BISMUTH SUBSALICYLATE 524 MG/30 ML PO PRN (13:48)
[2021-08-27] MEDS ORDERED: MAGNESIUM HYDROX 2400MG/30ML ORAL SUSPENSION 30 ML CUP PO PRN (13:48)
[2021-08-27] MEDS ORDERED: ACETAMINOPHEN 325 MG TABLET (FP) PO PRN (13:48)
[2021-08-27] MEDS ORDERED: ONDANSETRON *ODT* 4 MG TABLET SL PRN (13:48)
[2021-08-27] MEDS ORDERED: MENTHOL/PHENOL 1 EACH UD MM PRN (13:48)
[2021-08-27] MEDS ORDERED: MAG HYDROX/AL HYDROX/SIMETH 30 ML UNIT-DOSE CUP PO PRN (13:48)
[2021-08-27] MEDS ORDERED: IBUPROFEN 400 MG TABLET (FP) PO PRN (13:48)
[2021-08-27] MEDS ORDERED: ALBUTEROL SO4 HFA INHALER IH PRN (13:52)
[2021-08-27 16:25] VITALS: BMI 32.1
[2021-08-27] MEDS: chlordiazePOXIDE HCL 25 MG CAPSULE PO SCH ×2 (17:50→22:12)
[2021-08-27] MEDS: hydrOXYzine PAMOATE 25 MG CAPSULE (FP) PO SCH ×3 (17:50→22:12)
[2021-08-27] MEDS: NICOTINE 14 MG/24 HOURS TOPICAL PATCH TD SCH (17:55)
[2021-08-27] MEDS: PRENATAL VITAMINS W/ FOLIC ACID TABLET (FP) PO SCH (17:55)
[2021-08-27 18:01] LABS: CALCIUM 8.7 mg/dL (8.5-10.1)
[2021-08-27 18:02] LABS: ALBUMIN 3.5 g/dl (3.4-5.0); BLOOD UREA NITROGEN 7.8 mg/dL (7-18)
[2021-08-27 18:05] LABS: CREATININE 0.7 mg/dL (0.55-1.3)
[2021-08-27 18:06] LABS: HEMATOCRIT 40.3 % (32.4-45.2); HEMOGLOBIN 13.2 GM/dL (10.7-15.3); MCHC 32.8 g/dl (32.0-36.0); MEAN CELL VOLUME 97.7 fl (80-96); MEAN PLT VOLUME 8.3 fl (7.5-11.1); PLATELET COUNT 256 10^3/uL (134-434); RBC 4.12 M/mm3 (3.60-5.2); RDW 15.5 % (11.6-15.6); WHITE BLOOD COUNT 6.6 K/mm3 (4.0-10.0)
[2021-08-27 18:07] LABS: BILIRUBIN,TOTAL 0.5 mg/dL (0.2-1); TOT PROT 6.8 g/dl (6.4-8.2)
[2021-08-27] MEDS ORDERED: MELATONIN 5 MG TABLETS PO SCH (22:00)
[2021-08-27] MEDS: ATORVASTATIN CA 40 MG TABLET (FP) PO SCH (22:12)
[2021-08-27] MEDS: THIAMINE HCL 100 MG TABLET (FP) PO SCH (22:12)
[2021-08-28] MEDS: chlordiazePOXIDE HCL 25 MG CAPSULE PO SCH ×4 (05:44→22:16)
[2021-08-28] MEDS: hydrOXYzine PAMOATE 25 MG CAPSULE (FP) PO SCH ×7 (05:44→22:15)
[2021-08-28] MEDS: ACETAMINOPHEN 325 MG TABLET (FP) PO PRN ×2 (05:47→22:17)
[2021-08-28] MEDS ORDERED: methaDONE HCL 10 MG TABLET ONE (09:30)
[2021-08-28] MEDS ORDERED: methaDONE HCL 40 MG DISPERSABLE TABLET ONE (09:31)
[2021-08-28] MEDS ORDERED: methaDONE HCL 10 MG TABLET PO ONE (10:00)
[2021-08-28] MEDS: PRENATAL VITAMINS W/ FOLIC ACID TABLET (FP) PO SCH (10:12)
[2021-08-28] MEDS: METHOCARBAMOL 500 MG TABLET PO PRN (10:12)
[2021-08-28] MEDS: NICOTINE 14 MG/24 HOURS TOPICAL PATCH TD SCH (10:15)
[2021-08-28] MEDS: MELATONIN 5 MG TABLETS PO SCH (22:15)
[2021-08-28] MEDS: ATORVASTATIN CA 40 MG TABLET (FP) PO SCH (22:15)
[2021-08-28] MEDS: THIAMINE HCL 100 MG TABLET (FP) PO SCH (22:16)
[2021-08-29] MEDS ORDERED: methaDONE HCL 10 MG TABLET ONE (04:26)
[2021-08-29] MEDS ORDERED: methaDONE HCL 40 MG DISPERSABLE TABLET ONE (04:27)
[2021-08-29] MEDS: chlordiazePOXIDE HCL 25 MG CAPSULE PO SCH ×4 (05:44→22:25)
[2021-08-29] MEDS: ACETAMINOPHEN 325 MG TABLET (FP) PO PRN ×2 (05:50→18:05)
[2021-08-29] MEDS ORDERED: methaDONE HCL 10 MG TABLET PO SCH (06:00)
[2021-08-29] MEDS: hydrOXYzine PAMOATE 25 MG CAPSULE (FP) PO SCH ×5 (06:14→22:24)
[2021-08-29] MEDS: METHOCARBAMOL 500 MG TABLET PO PRN (10:22)
[2021-08-29] MEDS: NICOTINE 14 MG/24 HOURS TOPICAL PATCH TD SCH (10:23)
[2021-08-29] MEDS: PRENATAL VITAMINS W/ FOLIC ACID TABLET (FP) PO SCH (10:23)
[2021-08-29] MEDS: ATORVASTATIN CA 40 MG TABLET (FP) PO SCH (22:24)
[2021-08-29] MEDS: THIAMINE HCL 100 MG TABLET (FP) PO SCH (22:24)
[2021-08-29] MEDS: MELATONIN 5 MG TABLETS PO SCH (22:24)
[2021-08-30] MEDS ORDERED: chlordiazePOXIDE HCL 10 MG CAPSULE PO PRN
[2021-08-30] MEDS ORDERED: methaDONE HCL 40 MG DISPERSABLE TABLET ONE (03:54)
[2021-08-30] MEDS ORDERED: methaDONE HCL 10 MG TABLET ONE (03:54)
[2021-08-30] MEDS: hydrOXYzine PAMOATE 25 MG CAPSULE (FP) PO SCH ×5 (05:31→22:17)
[2021-08-30] MEDS: chlordiazePOXIDE HCL 10 MG CAPSULE PO SCH ×4 (05:32→22:18)
[2021-08-30] MEDS: ACETAMINOPHEN 325 MG TABLET (FP) PO PRN ×3 (05:38→17:54)
[2021-08-30] MEDS: METHOCARBAMOL 500 MG TABLET PO PRN ×3 (10:14→22:18)
[2021-08-30] MEDS: PRENATAL VITAMINS W/ FOLIC ACID TABLET (FP) PO SCH (10:14)
[2021-08-30] MEDS: NICOTINE 14 MG/24 HOURS TOPICAL PATCH TD SCH (10:15)
[2021-08-30] MEDS: NICOTINE 10 MG CARTRIDGE (INHALER) IH PRN (19:04)
[2021-08-30] MEDS ORDERED: SUVOREXANT 10 MG TABLET PO PRN (22:00)
[2021-08-30] MEDS: THIAMINE HCL 100 MG TABLET (FP) PO SCH (22:17)
[2021-08-30] MEDS: ATORVASTATIN CA 40 MG TABLET (FP) PO SCH (22:18)
[2021-08-31] MEDS ORDERED: methaDONE HCL 10 MG TABLET ONE (04:56)
[2021-08-31] MEDS ORDERED: methaDONE HCL 40 MG DISPERSABLE TABLET ONE (04:57)
[2021-08-31] MEDS: chlordiazePOXIDE HCL 10 MG CAPSULE PO SCH ×2 (05:53→18:26)
[2021-08-31] MEDS: hydrOXYzine PAMOATE 25 MG CAPSULE (FP) PO SCH ×5 (05:54→22:12)
[2021-08-31] MEDS: METHOCARBAMOL 500 MG TABLET PO PRN ×3 (05:58→22:12)
[2021-08-31] MEDS: NICOTINE 14 MG/24 HOURS TOPICAL PATCH TD SCH (10:20)
[2021-08-31] MEDS: PRENATAL VITAMINS W/ FOLIC ACID TABLET (FP) PO SCH (10:21)
[2021-08-31] MEDS: ACETAMINOPHEN 325 MG TABLET (FP) PO PRN (12:15)
[2021-08-31] MEDS: THIAMINE HCL 100 MG TABLET (FP) PO SCH (22:12)
[2021-08-31] MEDS: ATORVASTATIN CA 40 MG TABLET (FP) PO SCH (22:12)
[2021-09-01] MEDS: NICOTINE 10 MG CARTRIDGE (INHALER) IH PRN (03:52)
[2021-09-01] MEDS ORDERED: methaDONE HCL 10 MG TABLET ONE (04:45)
[2021-09-01] MEDS ORDERED: methaDONE HCL 40 MG DISPERSABLE TABLET ONE (04:45)
[2021-09-01] MEDS ORDERED: chlordiazePOXIDE HCL 10 MG CAPSULE PO ONE (05:00)
[2021-09-01] MEDS: hydrOXYzine PAMOATE 25 MG CAPSULE (FP) PO SCH (06:43)
[2021-09-01 07:23] VITALS: BP 115/66; PULSE 56; TEMP 97.3
== END 2021-09-01 09:11 | disposition home or self-care (01) | DRG 773 ==
LOC: YASAS 13:24 → Y3N 16:25 → Y6N 16:33
PROVIDERS: ADMIT Allergy & Immunology; ATTEND Allergy & Immunology
PROC: HZ2ZZZZ Detoxification Services for Substance Abuse Treatment (ICD-10-PCS; principal; 2021-08-27)
DX: F10.230 Alcohol dependence with withdrawal, uncomplicated (principal); F13.230 Sedative, hypnotic or anxiolytic dependence with withdrawal, uncomplicated; F11.20 Opioid dependence, uncomplicated; F17.210 Nicotine dependence, cigarettes, uncomplicated; F19.280 Other psychoactive substance dependence with psychoactive substance-induced anxiety disorder; F19.282 Other psychoactive substance dependence with psychoactive substance-induced sleep disorder; F19.24 Other psychoactive substance dependence with psychoactive substance-induced mood disorder; F41.9 Anxiety disorder, unspecified; F32.A Depression, unspecified; F43.10 Post-traumatic stress disorder, unspecified; I10 Essential (primary) hypertension; E78.1 Pure hyperglyceridemia; J45.909 Unspecified asthma, uncomplicated; M50.20 Other cervical disc displacement, unspecified cervical region; M51.26 Other intervertebral disc displacement, lumbar region; M06.9 Rheumatoid arthritis, unspecified; Z62.810 Personal history of physical and sexual abuse in childhood; Z91.51 Personal history of suicidal behavior; Z88.5 Allergy status to narcotic agent; Z88.8 Allergy status to other drugs, medicaments and biological substances
CPT/HCPCS: 36415; 80053; 81025; 82962; 85027; 86780; C9803; U0003; U0005